=== PATIENT | female | born 1985 | race Caucasian/White ===

== ENCOUNTER 2024-07-12 10:09 | Outpatient (AMB) | payer OTHER, SELFPAY ==
[2024-07-12 10:23] VITALS: BP 122/62; PULSE 68; O2SAT 100; BMI 32.4
--- NOTE | 2024-07-12 10:23 | MHC.OFFVIS ---
Vital Signs 07/12/24 10:23 Height 5 ft 3 in Weight 183 lb 3.266 oz BMI 32.4 BP 122/62 Blood Pressure Location Lt brachial Position Sitting Pulse 68 Pulse Source Pulse Oximeter Pulse Oximetry (%) 100 Oxygen Delivery Method Room Air Intake Visit Reasons: SS/CM APT Intake Note: Patient presents today for follow up on sjorggen's cryoglobulinemic vasculitis Allergies doxycycline Allergy (Mild, Verified 07/12/24 10:29) Rash methotrexate Allergy (Mild, Verified 07/12/24 10:29) Itching minocycline Allergy (Mild, Verified 07/12/24 10:29) Vomiting rituximab Allergy (Mild, Verified 07/12/24 10:29) rash, body pain HPI HPI SS/CM APT: Details: She relapsed with low grade fevers 99.8F with chills, myalgias. She was back on prednisone 5mg BID. She saw Dr. Mike in March and April. She tried to reduce prednisone to 5 mg daily but had recurrence of symptoms. She continues to have purpuric lesions on her legs. She also has a circular lesion that concerns her for a fungal infection that started a few weeks ago on her left medial leg. She has been applying antifungal topical with some benefit. She also has an appointment to see a provider at her PCP's office for possible skin biopsy. 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 She denies pleurisy, fevers, Raynaud's phenomenon, new rashes, urinary symptoms at this time. No new joint swelling. [facility] Medical History (Updated 07/12/24 @ 12:56 by Bolivar Dugan MD) Myositis on muscle biopsy Celiac disease Polyarthritis Raynaud disease Cryoglobulinemic vasculitis H/O Sjogren's disease Surgical History (Updated 07/12/24 @ 10:39 by Salome Cruz CMA) H/O unilateral oophorectomy H/O biopsy of kidney H/O eye surgery Family History (Updated 07/12/24 @ 10:40 by Salome Cruz CMA) Mother Cardiovascular disease Thyroid disorder Father Hypertension Diabetes Brother ADHD (attention deficit hyperactivity disorder) Social History (Updated 07/12/24 @ 10:41 by Salome Cruz CMA) Alcohol intake: never Patient Tobacco Use Status: Never used Tobacco Review of Systems Const All systems reviewed & are unremarkable except as noted in HPI and below Physical Exam Vital Signs: Last Vital Signs Pulse 68 07/12/24 10:23 BP 122/62 07/12/24 10:23 Pulse Ox 100 07/12/24 10:23 Oxygen Delivery Method Room Air 07/12/24 10:23 BMI result Body Mass Index 32.4 Const Other: General: Comfortable CVS: RRR Respiratory: clear to auscultation bilaterally. Good respiratory effort Skin: No lesions seen MSK: No tenderness of any joints. No synovitis. Good range of motion of upper extremity and lower extremity. Nonpalpable purpura present on legs scattered spots. She has a circular lesion at least 10 cm diameter left medial leg near ankle. 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 Negative hepatitis-B and C). Relapse disease on azathioprine. She recently had a flare presenting with low-grade fevers, myalgias, weight loss, recurrence of rash and lower extremity. We discussed next steps in treatment with immunosuppressive therapy mycophenolate mofetil. She reports in the past she was given mycophenolate mofetil by Neurology when they were considering a diagnosis of MS. She does not recall any side effects on mycophenolate mofetil. I have reviewed labs that patient brought in from 06/22/2024. History of latent TB treated year 2001. Chest x-ray was ordered by principal biostatistician Dr. Muñoz. She does not know results of chest x-ray. 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 +SSA, SSB, MANUEL 1:1280, rheumatoid factor 27.9, low C4. She has had multiple side effects to immunosuppressive agents in the past: Hydroxychloroquine cause low white cell count (evaluated by Hematology), rituximab caused infusion reaction with rash and body pain after 1st dose, sulfasalazine caused severe GI upset 12/20/2021, azathioprine 09/22/2022-to present. She has longstanding Sjogren syndrome associated inflammatory arthritis responding to low-dose prednisone. Code(s): D89.1 - Cryoglobulinemia Category: Medical Plan: T spot ordered. Requesting chest x-ray results. I have ordered Lyme antibody due to my concern for possible Lyme infection. If results are negative, she will start mycophenolate mofetil 500 mg twice a day She will continue to take azathioprine 225 mg daily weight based She will have labs done in a month for drug monitoring with close attention paid to white blood cell count. Per patient's insurance she needs labs to be done at a [facility]. Lab requisition given to patient She will reduce prednisone dose to 7.5 mg daily Return to clinic in 3 months She will need bone density if not done recently (2) H/O Sjogren's disease: Comment: Sicca symptoms are stable. She continues to use Systane and Xiidra prescribed by Ophthalmology for dry eyes. Code(s): M35.00 - Sjogren syndrome, unspecified Category: Medical Plan: See above (3) Rash: Comment: Present on Right medial distal leg with circular bull's-eye lesion present. I am concerned for possible Lyme infection. Currently patient is treating rash as a fungal rash with antifungals. Code(s): R21 - Rash and other nonspecific skin eruption Category: Medical Plan: Labs ordered this visit. (4) Raynaud disease: Comment: Controlled Code(s): I73.00 - Raynaud's syndrome without gangrene Category: Medical Qualifiers: Raynaud?s-associated gangrene presence: without gangrene Qualified Code(s): I73.00 - Raynaud's syndrome without gangrene Plan: Continue conservative management (5) Polyarthritis: Comment: Controlled on low-dose prednisone Code(s): M13.0 - Polyarthritis, unspecified Category: Medical Plan: We will start tapering prednisone slowly. She will decrease to prednisone 7.5 mg daily (6) Other intermediate (current) drug therapy: Code(s): Z79.899 - Other intermediate (current) drug therapy Category: Medical Plan: See above Orders: Orders Erythrocyte Sedimentation Rate Today Z79.899 - Other intermediate (current) drug therapy C Reactive Protein Today Z79.899 - Other laborer marine terminal (current) drug therapy Aspartate Amino Transferase Today Z79.60 - intermediate accountant (current) use of unspecified immunomodulators and immunosuppressants Creatinine Today Z79.60 - care home (current) use of unspecified immunomodulators and immunosuppressants Erythrocyte Sedimentation Rate Today Z79.899 - Other intermediate (current) drug therapy T Spot TB Today Z79.899 - Other intermediate (current) drug therapy Alanine Aminotransferase Today Z79.60 - care home (current) use of unspecified immunomodulators and immunosuppressants Complete Blood Count Auto Diff Today Z79.60 - intermediate accountant (current) use of unspecified immunomodulators and immunosuppressants Creatinine Today Z79.60 - intermediate accountant (current) use of unspecified immunomodulators and immunosuppressants Complete Blood Count Auto Diff Today Z79.60 - care home (current) use of unspecified immunomodulators and immunosuppressants C Reactive Protein Today Z79.899 - Other laborer marine terminal (current) drug therapy Aspartate Amino Transferase Today Z79.60 - care home (current) use of unspecified immunomodulators and immunosuppressants Alanine Aminotransferase Today Z79.60 - care home (current) use of unspecified immunomodulators and immunosuppressants Lyme IgG/IgM w/reflex to WB Today R21 - Rash and other nonspecific skin eruption Medications: New mycophenolate mofetil 500 mg PO BID 60 tabs 2RF prednisone 7.5 mg (3 x 2.5 mg) PO DAILY 90 tabs 2RF Coding Level of Care Code Est Pt Level 4 (37085) Complex EM visit Add On G2211 Diagnoses Cryoglobulinemic vasculitis D89.1 H/O Sjogren's disease M35.00 Rash R21 Raynaud's disease without gangrene I73.00 Raynaud?s-associated gangrene presence: without gangrene Polyarthritis M13.0 Other laborer marine terminal (current) drug therapy Z79.
== END 2024-07-12 11:18 | disposition home or self-care (01) ==
PROVIDERS: PCP Family Medicine; Visit Provider Internal Medicine Rheumatology
DX: D89.1 Cryoglobulinemia (principal); M35.00 Sjogren syndrome, unspecified; R21 Rash and other nonspecific skin eruption; I73.00 Raynaud's syndrome without gangrene; M13.0 Polyarthritis, unspecified; Z79.899 Other long term (current) drug therapy
CPT/HCPCS: 99214

== ENCOUNTER → 2024-07-12 10:09 | Outpatient (BNVA) | payer OTHER, SELFPAY | PROVIDERS: PCP Family Medicine; Visit Provider Internal Medicine Rheumatology ==

== ENCOUNTER 2024-10-12 10:11 | Outpatient (AMB) | payer OTHER, SELFPAY ==
--- NOTE | 2024-10-12 10:25 | A.OFFVIS_ITS ---
Vital Signs 10/12/24 10:28 Height 5 ft 3 in Weight 182 lb 1.629 oz BMI 32.3 BP 130/100 H Pulse 73 Pulse Source Pulse Oximeter Pulse Oximetry (%) 100 Oxygen Delivery Method Room Air Intake Visit Reasons: Follow Up 3mo Intake Note: Patient presents today for follow up on sjorggen's cryoglobulinemic vasculitis Allergies doxycycline Allergy (Mild, Verified 07/12/24 10:29) Rash methotrexate Allergy (Mild, Verified 07/12/24 10:29) Itching minocycline Allergy (Mild, Verified 07/12/24 10:29) Vomiting rituximab Allergy (Mild, Verified 07/12/24 10:29) rash, body pain HPI HPI Follow Up 3mo: Details: Dry eyes uncontrolled for a month. Relieved with warm compresses. She sees [facility] in [place] textile colorist formulator Mariana Dempsey. She has been on Xiidra. She was told to use additional OTC eyedrops. Symptoms are better controlled. She will be following up with textile colorist formulator in December. New small spots in legs occur daily. Starts as a sting sensation. She continues to have fatigue Dry mouth is tolerable on biotene toothpaste and losenges Right foot dragged a few times when walking. Standing for more than 5 minutes her feet get numbs. Doesn't occur when sitting. She is tolerating Myfortic PFSH Medical History (Updated 10/12/24 @ 14:53 by Bolivar Dugan MD) Myositis on muscle biopsy Celiac disease Polyarthritis Raynaud disease Cryoglobulinemic vasculitis H/O Sjogren's disease Surgical History (Updated 07/12/24 @ 10:39 by Salome Cruz CMA) H/O unilateral oophorectomy H/O biopsy of kidney H/O eye surgery Family History (Updated 07/12/24 @ 10:40 by Salome Cruz CMA) Mother Cardiovascular disease Thyroid disorder Father Hypertension Diabetes Brother ADHD (attention deficit hyperactivity disorder) Social History (Updated 07/12/24 @ 10:41 by Salome Cruz CMA) Alcohol intake: never Patient Tobacco Use Status: Never used Tobacco Review of Systems Const All systems reviewed & are unremarkable except as noted in HPI and below and Other Physical Exam Vital Signs: Last Vital Signs Pulse 73 10/12/24 10:28 BP 130/100 H 10/12/24 10:28 Pulse Ox 100 10/12/24 10:28 Oxygen Delivery Method Room Air 10/12/24 10:28 BMI result Body Mass Index 32.3 Const Other: General: Comfortable CVS: RRR Respiratory: clear to auscultation bilaterally. Good respiratory effort Skin: Sparse palpable, nonblanching petechiae present on legs MSK: No tenderness of any joints. No synovitis. Normal range of motion of upper extremity and lower extremity. Assessment & Plan Assessment & Plan (1) Cryoglobulinemic vasculitis: Comment: Disease is not controlled on prednisone 7.5 mg daily, azathioprine 225 mg daily and recently started Myfortic 180 mg twice a day. She continues to have daily lesions on her legs, self-limited. 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 +SSA, SSB, MANUEL 1:1280, rheumatoid factor 27.9, low C4. She has had multiple side effects to immunosuppressive agents in the past: Hydroxychloroquine cause low white cell count (evaluated by Hematology), rituximab caused infusion reaction with rash and body pain after 1st dose, sulfasalazine caused severe GI upset 12/20/2021, azathioprine 09/22/2022-to present. She has longstanding Sjogren syndrome associated inflammatory arthritis responding to low-dose prednisone. She has been diagnosed with cryoglobulinemic vasculitis (mixed type 3 cryoglobulinemia. Negative hepatitis- B and C) onset 2022 relapsed on azathioprine and low-dose prednisone. Dr Aguirre at [facility] in the past prescribed her mycophenolate mofetil, which was up titrated to 1250mg BID and after 5 weeks it was stopped because of itchiness in limbs and anxiety. Myfortic 08/2024-. Code(s): D89.1 - Cryoglobulinemia Category: Medical Plan: Increase Myfortic to 360 twice a day She will call office in 1-2 months to report clinical update. If her symptoms are improving, I will consider decreasing prednisone to 5 mg daily She will continue to take azathioprine 225 mg daily weight based Labs for drug monitoring on high-risk medications up-to-date 09/2024. She will have labs done in a month for drug monitoring with close attention paid to white blood cell count. Per patient's insurance she needs labs to be done at a [facility] facility. Lab requisition given to patient. Requesting hepatitis-B and C serologies from [facility] from 2022 for my record at [facility] [place]. Continue prednisone 7.5 mg daily Return to clinic in 3 months Letter written for patient's workplace She will need bone density if not done recently. I will be checking calcium, albumin, and vitamin-D with next lab check (2) H/O Sjogren's disease: Comment: Sicca symptoms are stable. She continues to use Systane and Xiidra prescribed by textile colorist formulator for dry eyes. Code(s): M35.00 - Sjogren syndrome, unspecified Category: Medical Plan: Continue to follow up with textile colorist formulator Kal in [place] for dry eye management Continue Biotene products for dry mouth management: Lozenges and tooth paste (3) Raynaud disease: Comment: Controlled Code(s): I73.00 - Raynaud's syndrome without gangrene Category: Medical Qualifiers: Raynaud?s-associated gangrene presence: without gangrene Qualified Code(s): I73.00 - Raynaud's syndrome without gangrene Plan: Continue conservative management (4) Polyarthritis: Comment: Associated with Sjogren syndrome. Controlled on low-dose prednisone Code(s): M13.0 - Polyarthritis, unspecified Category: Medical Plan: Continue prednisone 7.5 mg daily (5) Other prison (current) drug therapy: Code(s): Z79.899 - Other watermaster (current) drug therapy Category: Medical Plan: See above Orders: Orders Alanine Aminotransferase 1 Month Z79.60 - senior care (current) use of unspecified immunomodulators and immunosuppressants Complete Blood Count Auto Diff 1 Month Z79.60 - senior care (current) use of unspecified immunomodulators and immunosuppressants Aspartate Amino Transferase 1 Month Z79.60 - petroleum terminal plant operator (current) use of unspecified immunomodulators and immunosuppressants C Reactive Protein 1 Month Z79.899 - Other watermaster (current) drug therapy Albumin Level Today Z79.899 - Other watermaster (current) drug therapy Creatinine 1 Month Z79.60 - senior care (current) use of unspecified immunomodulators and immunosuppressants Erythrocyte Sedimentation Rate 1 Month Z79.899 - Other watermaster (current) drug therapy Vitamin D 25-OH Total Today Z79.899 - Other watermaster (current) drug therapy Calcium Today Z79.899 - Other prison (current) drug therapy Medications: Changed From mycophenolate sodium (Myfortic) 180 mg PO BID 60 tabs 2RF To mycophenolate sodium (Myfortic) 360 mg (2 x 180 mg) PO BID 90 days 360 tabs 0RF From prednisone 7.5 mg (3 x 2.5 mg) PO DAILY 90 tabs 2RF To prednisone 7.5 mg (3 x 2.5 mg) PO DAILY 90 days 270 tabs 0RF Coding Level of Care Code Est Pt Level 5 (25632) Complex EM visit Add On G2211 Diagnoses Cryoglobulinemic vasculitis D89.1 H/O Sjogren's disease M35.00 Raynaud's disease without gangrene I73.00 Raynaud?s-associated gangrene presence: without gangrene Polyarthritis M13.0 Other watermaster (current) drug therapy Z79.89 Time Spent (min) 40
[2024-10-12 10:28] VITALS: BP 130/100; PULSE 73; O2SAT 100; BMI 32.3
== END 2024-10-12 11:02 | disposition home or self-care (01) ==
LOC: HO.RHES 10:12
PROVIDERS: PCP Family Medicine; Visit Provider Internal Medicine Rheumatology
DX: D89.1 Cryoglobulinemia (principal); M35.00 Sjogren syndrome, unspecified; I73.00 Raynaud's syndrome without gangrene; M13.0 Polyarthritis, unspecified; Z79.899 Other long term (current) drug therapy
CPT/HCPCS: 99215

== ENCOUNTER 2025-01-17 10:25 | Outpatient (AMB) | payer OTHER, SELFPAY ==
--- NOTE | 2025-01-17 10:44 | A.OFFVIS_ITS ---
Vital Signs 01/17/25 10:47 Height 5 ft 3 in Weight 176 lb 6 oz BMI 31.2 BP 150/100 H Blood Pressure Location Lt brachial Position Sitting Pulse 79 Pulse Source Pulse Oximeter Temp 100 F Pulse Oximetry (%) 100 Oxygen Delivery Method Room Air Intake Visit Reasons: 3 Months Intake Note: Patient presents today for follow up on sjorggen's cryoglobulinemic vasculitis Accompanied by: Self / Same As Patient Allergies doxycycline Allergy (Mild, Verified 01/17/25 10:45) Rash methotrexate Allergy (Mild, Verified 01/17/25 10:45) Itching minocycline Allergy (Mild, Verified 01/17/25 10:45) Vomiting rituximab Allergy (Mild, Verified 01/17/25 10:45) rash, body pain Medication List - Last Reconciled 01/17/25 by Bolivar Dugan MD azathioprine 200 mg (2 x 100 mg) PO DAILY 90 days azathioprine 25 mg (1/2 x 50 mg) PO DAILY 90 days lifitegrast 5% (Xiidra) 1 drp ophthalmic (eye) BID lorazepam 1 mg PO DAILY PRN magnesium oxide 400 mg PO DAILY multivitamin 1 tab PO DAILY mycophenolate sodium (Myfortic) 360 mg (2 x 180 mg) PO BID 90 days omeprazole 40 mg PO DAILY ondansetron HCl 4 mg PO Q8H prednisone 5 mg PO DAILY HPI HPI 3 Months: Details: SHe was on antibiotic for sinus infection. MS 1 hour. Feels good. Intermittent lesions in legs that self resolve. PFSH Medical History (Updated 01/17/25 @ 12:54 by Bolivar Dugan MD) Myositis on muscle biopsy Celiac disease Polyarthritis Raynaud disease Cryoglobulinemic vasculitis H/O Sjogren's disease Surgical History (Updated 07/12/24 @ 10:39 by Salome Cruz CMA) H/O unilateral oophorectomy H/O biopsy of kidney H/O eye surgery Family History (Updated 07/12/24 @ 10:40 by Salome Cruz CMA) Mother Cardiovascular disease Thyroid disorder Father Hypertension Diabetes Brother ADHD (attention deficit hyperactivity disorder) Social History (Updated 07/12/24 @ 10:41 by Salome Cruz CMA) Alcohol intake: never Patient Tobacco Use Status: Never used Tobacco Physical Exam Vital Signs: Last Vital Signs Temp 100 F 01/17/25 10:47 Pulse 79 01/17/25 10:47 BP 150/100 H 01/17/25 10:47 Pulse Ox 100 01/17/25 10:47 Oxygen Delivery Method Room Air 01/17/25 10:47 BMI result Body Mass Index 31.2 Const Other: General: Comfortable CVS: RRR Respiratory: clear to auscultation bilaterally. Good respiratory effort Skin: Sparse palpable, nonblanching petechiae present right thigh MSK: No tenderness of any joints. No synovitis. Normal range of motion of upper extremity and lower extremity. Assessment & Plan Assessment & Plan (1) Cryoglobulinemic vasculitis: Comment: Disease is controlled on prednisone 2.5 mg daily, azathioprine 225 mg daily and Myfortic 360 mg twice a day. There is reduction in frequency and amount of lesions that are sporadically appearing and resolving on her legs. 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 +SSA, SSB, MANUEL 1:1280, rheumatoid factor 27.9, low C4. She has had multiple side effects to immunosuppressive agents in the past: Hydroxychloroquine cause low white cell count (evaluated by Hematology), rituximab caused infusion reaction with rash and body pain after 1st dose, sulfasalazine caused severe GI upset 12/20/2021, azathioprine 09/22/2022-to present. She has longstanding Sjogren syndrome associated inflammatory arthritis responding to low-dose prednisone. 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 Negative hepatitis-B and C) onset 2022 relapsed on azathioprine and low-dose prednisone. Dr Aguirre at [facility] in the past prescribed her mycophenolate mofetil, which was up titrated to 1250mg BID and after 5 weeks it was stopped because of itchiness in limbs and anxiety. Myfortic 08/2024-. Code(s): D89.1 - Cryoglobulinemia Category: Medical Plan: Continue Myfortic to 360 twice a day Decrease prednisone to 2.5 mg daily for 1 month then discontinue She will continue to take azathioprine 225 mg daily weight based Labs for drug monitoring on high-risk medications up-to-date 11/2024. She will camops ve labs done prior to running out of Myfortic in 2-3 weeks for drug monitoring Return to clinic in 3 months FMLA completed for patient She will need bone density if not done recently. Ordered last visit. I will be checking calcium, albumin, and vitamin-D with next lab check (2) H/O Sjogren's disease: Comment: Sicca symptoms are stable. She continues to use Systane and Xiidra prescribed by meat team lead for dry eyes. Code(s): M35.00 - Sjogren syndrome, unspecified Category: Medical Plan: Continue to follow up with meat team lead Dr. Valle and is planning to have laser treatment this Thursday Continue Biotene products for dry mouth management: Lozenges and tooth paste (3) Raynaud disease: Comment: Controlled Code(s): I73.00 - Raynaud's syndrome without gangrene Category: Medical Qualifiers: Raynaud?s-associated gangrene presence: without gangrene Qualified Code(s): I73.00 - Raynaud's syndrome without gangrene Plan: Continue conservative management (4) Polyarthritis: Comment: Associated with Sjogren syndrome. Controlled on low-dose prednisone. Code(s): M13.0 - Polyarthritis, unspecified Category: Medical Plan: Decrease prednisone to 2.5 mg daily for 1 month and discontinue (5) Other superintendent marine oil terminal (current) drug therapy: Code(s): Z79.899 - Other custodial (current) drug therapy Category: Medical Plan: See above (6) custodial systemic steroid user: Code(s): Z79.52 - custodial (current) use of systemic steroids Category: Medical Plan: Bone density ordered Calcium, albumin, vitamin-D ordered Return to clinic in 3 months Orders: Orders Albumin Level Today D89.1 - Cryoglobulinemia, M13.0 - Polyarthritis, unspecified, Z79.52 - custodial (current) use of systemic steroids, Z79.899 - Other custodial (current) drug therapy Calcium Today D89.1 - Cryoglobulinemia, M13.0 - Polyarthritis, unspecified, Z79.52 - marine oil terminal superintendent (current) use of systemic steroids, Z79.899 - Other custodial (current) drug therapy Medications: Changed From prednisone 5 mg PO DAILY To prednisone 2.5 mg PO DAILY 90 days 90 tabs 0RF Coding Level of Care Code Est Pt Level 4 (31404) Complex EM visit Add On G2211 Diagnoses Cryoglobulinemic vasculitis D89.1 H/O Sjogren's disease M35.00 Raynaud's disease without gangrene I73.00 Raynaud?s-associated gangrene presence: without gangrene Polyarthritis M13.0 Other superintendent marine oil terminal (current) drug therapy Z79.899 marine oil terminal superintendent systemic steroid user Z79.52
[2025-01-17 10:47] VITALS: BP 150/100; PULSE 79; TEMP 37.7; O2SAT 100; BMI 31.2
== END 2025-01-17 11:19 | disposition home or self-care (01) ==
LOC: HO.RHES 10:25
PROVIDERS: PCP Family Medicine; Visit Provider Internal Medicine Rheumatology
DX: D89.1 Cryoglobulinemia (principal); M35.00 Sjogren syndrome, unspecified; I73.00 Raynaud's syndrome without gangrene; M13.0 Polyarthritis, unspecified; Z79.899 Other long term (current) drug therapy; Z79.52 Long term (current) use of systemic steroids
CPT/HCPCS: 99214; G2211

== ENCOUNTER 2025-04-25 10:29 | Outpatient (AMB) | payer OTHER, SELFPAY ==
--- NOTE | 2025-04-25 10:34 | MHC.OFFVIS ---
Vital Signs 04/25/25 10:35 Height 5 ft 3 in Weight 178 lb BMI 31.5 BP 140/80 H Blood Pressure Location Lt brachial Position Sitting Pulse 86 Pulse Source Pulse Oximeter Pulse Oximetry (%) 100 Oxygen Delivery Method Room Air Intake Visit Reasons: 3 Months Intake Note: Patient presents today for follow up on sjorggen's Accompanied by: Self / Same As Patient Allergies doxycycline Allergy (Mild, Verified 04/25/25 10:36) Rash methotrexate Allergy (Mild, Verified 04/25/25 10:36) Itching minocycline Allergy (Mild, Verified 04/25/25 10:36) Vomiting rituximab Allergy (Mild, Verified 04/25/25 10:36) rash, body pain HPI HPI 3 Months: Details: On prednisone 20mg daily. She feels unwell. She has fatigue that resolves at lunch time. Muscle pain is variable areas. Some joints may hurt. MS hours. No joint swelling. Denies fevers. LCV lesions come and go. She has a few spots on her legs. Recent rash that appeared on her arms were resolving when she started prednisone. They occurred when she stopped Myfortic and azathioprine when she was being treated with an antibiotic for infection. Skin Biopsy confirmed changes consistent with connective tissue disease rash. She lowered Myfortic to 160 mg b.i.d due to recent leukopenia. she continues to take azathioprine. Dry mouth is manageable. She had laser treatment x3 performed by laminating machine offbearer Dr. Valle that was effective in controlling dry eyes. 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 Celiac disease Polyarthritis Raynaud disease Cryoglobulinemic vasculitis H/O Sjogren's disease Surgical History H/O unilateral oophorectomy H/O biopsy of kidney H/O eye surgery Family History Mother Cardiovascular disease Thyroid disorder Father Hypertension Diabetes Brother ADHD (attention deficit hyperactivity disorder) Social History Alcohol intake: never Patient Tobacco Use Status: Never used Tobacco Physical Exam Vital Signs: Last Vital Signs Pulse 86 04/25/25 10:35 BP 140/80 H 04/25/25 10:35 Pulse Ox 100 04/25/25 10:35 Oxygen Delivery Method Room Air 04/25/25 10:35 BMI result Body Mass Index 31.5 Const Other: General: Comfortable CVS: RRR Respiratory: clear to auscultation bilaterally. Good respiratory effort Skin: One palpable, nonblanching petechiae present left thigh. Two hyperpigmented circular skin lesions right upper arm (punch biopsy sites). MSK: No tenderness of any joints. No synovitis. Normal range of motion of upper extremity and lower extremity. 5/5 power upper extremity. Left hip flexors 4/5 power. Rest of lower extremity is 5/5 power. Assessment & Plan Assessment & Plan (1) Sjogrens syndrome: Comment: Dry eyes are controlled after laser treatment by laminating machine offbearer Dr. Valle. Dry mouth is controlled. Labs from March 2025 reveal hypocomplementemia (C3 and C4), acute on chronic leukopenia, worsening macrocytic anemia, persistent elevated ESR in the setting of of flare with clinical symptoms of increased fatigue, hair loss, joint pain when she was off of her immune suppressive therapy during treatment of an infection. She also developed new rash manifesting with circular lesions on her upper extremities right arm worse than left that concerned me for acute cutaneous lupus after reviewing photos on her phone. She meets SLICC criteria for SLE with her most recent flare. Negative Sm, DsDNA, CLEANING TEAM MEMBER, proteinuria with normal kidney function. Symptoms have subsided on prednisone 20 mg daily. Leukopenia could also be attributed to drug side effect more when Myfortic was increased. Code(s): M35.00 - Sjogren syndrome, unspecified Category: Medical Qualifiers: Sjogren organ or system involvement: keratoconjunctivitis Qualified Code(s): M35.01 - Sjogren syndrome with keratoconjunctivitis Plan: CBC, ESR, CRP, C3, C4, vitamin B12, folate level ordered for patient to do at her local lab per insurance requirement She will start tapering prednisone 5 mg every 2 weeks If she has difficulty tapering down on prednisone, I will need to consider B-cell targeted treatment with Benlysta for treatment of SLE Continue Myfortic 180 mg b.i.d. Continue azathioprine 200 mg daily Continue to follow up with construction trench digger Dr. Valle and is planning to have laser treatment this Thursday Continue Biotene products for dry mouth management: Lozenges and tooth paste (2) Cryoglobulinemic vasculitis: Comment: Disease is controlled. 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 +SSA, SSB, MANUEL 1:1280, rheumatoid factor 27.9, low C4. She has had multiple side effects to immunosuppressive agents in the past: Hydroxychloroquine cause low white cell count (evaluated by Hematology), rituximab caused infusion reaction with rash and body pain after 1st dose, sulfasalazine caused severe GI upset 12/20/2021, azathioprine 09/22/2022-to present. She has longstanding Sjogren syndrome associated inflammatory arthritis responding to low-dose prednisone. 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 Dr Aguirre at [facility] in the past prescribed her mycophenolate mofetil, which was up titrated to 1250mg BID and after 5 weeks it was stopped because of itchiness in limbs and anxiety. Myfortic 08/2024-. Code(s): D89.1 - Cryoglobulinemia Category: Medical Plan: Continue Myfortic 180mg twice a day Decrease prednisone 5 mg every 2 weeks Continue to take azathioprine 200 mg daily weight based Labs ordered for disease and drug monitoring as above Return to clinic in 3 months She will need bone density if not done recently. (3) Polyarthritis: Comment: Associated with Sjogren syndrome. Controlled on prednisone Code(s): M13.0 - Polyarthritis, unspecified Category: Medical Plan: Decrease prednisone 5 mg every 2 weeks (4) Raynaud disease: Comment: Controlled Code(s): I73.00 - Raynaud's syndrome without gangrene Category: Medical Qualifiers: Raynaud?s-associated gangrene presence: without gangrene Qualified Code(s): I73.00 - Raynaud's syndrome without gangrene Plan: Continue conservative management (5) Other residential (current) drug therapy: Code(s): Z79.899 - Other residential (current) drug therapy Category: Medical Plan: See above (6) metal bonder systemic steroid user: Comment: She has proximal left leg weakness on exam 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 Code(s): Z79.52 - metal bonder (current) use of systemic steroids Category: Medical Plan: Bone density ordered 01/2025 Prednisone tapering initiated Return to clinic in 3 months (7) Macrocytic anemia: Code(s): D53.9 - Nutritional anemia, unspecified Category: Medical Plan: Folic and vitamin B12 ordered Orders: Orders C Reactive Protein Today D89.1 - Cryoglobulinemia, M13.0 - Polyarthritis, unspecified, M35.00 - Sjogren syndrome, unspecified, R21 - Rash and other nonspecific skin eruption Erythrocyte Sedimentation Rate Today D89.1 - Cryoglobulinemia, M13.0 - Polyarthritis, unspecified, M35.00 - Sjogren syndrome, unspecified, R21 - Rash and other nonspecific skin eruption UA w Microscopic Today D89.1 - Cryoglobulinemia, R21 - Rash and other nonspecific skin eruption Complement C4 Today M35.01 - Sjogren syndrome with keratoconjunctivitis Folate Today D53.9 - Nutritional anemia, unspecified Complete Blood Count Auto Diff Today D89.1 - Cryoglobulinemia, M13.0 - Polyarthritis, unspecified, M35.00 - Sjogren syndrome, unspecified, R21 - Rash and other nonspecific skin eruption Protein Creatinine Ratio, Ur Today D89.1 - Cryoglobulinemia, M13.0 - Polyarthritis, unspecified, R21 - Rash and other nonspecific skin eruption Complement C3 Today M35.01 - Sjogren syndrome with keratoconjunctivitis Vitamin B12 Today D53.9 - Nutritional anemia, unspecified Medications: New prednisone Take 3 tablets daily 2 weeks, 2 tablets daily 2 weeks, 1 tablet daily 2 weeks then stop 5 mg PO DIRECTED 84 tabs 0RF Coding Level of Care Code Est Pt Level 4 (95956) Complex EM visit Add On G2211 Diagnoses Sjogren's syndrome with keratoconjunctivitis sicca M35.01 Sjogren organ or system involvement: keratoconjunctivitis Cryoglobulinemic vasculitis D89.1 Polyarthritis M13.0 Raynaud's disease without gangrene I73.00 Raynaud?s-associated gangrene presence: without gangrene Other associate juvenile court judge (current) drug therapy Z79.899 penitentiary systemic steroid user Z79.52 Macrocytic anemia D53.9
[2025-04-25 10:35] VITALS: BP 140/80; PULSE 86; O2SAT 100; BMI 31.5
--- OUTSIDE RECORDS SUMMARY | 2025-04-25 12:48 | XMS_ITS | Encounter Summary ---
Author Organization [facility] Address [address] [facility] [address] [place] [address] Phone Care Team Providers Care Glass Cut Off Supervisor Name Role Phone Brenton Morales MD Unavailable [phone] Valeri Goodwin MD Unavailable [phone] Zan Brown ENTRY LEVEL ASSISTANT MANAGER Unavailable [phone] Sharona Velasco ONLINE ACTIVIST Unavailable [phone] Jd Murray MD Unavailable [phone] Bharath Lyon MD Unavailable Corine Neil MD Unavailable Pcp, Unknown Primary Care Provider UnavailValeri Jenkins MD Primary Care Provider [phone] Pcp, Unknown Primary Care Provider UnavailKerwin Stanley DO Primary Care Provider [phone] Encounter Details Date Type Department Care Team (Late st Contact Info) Description 07/21/2017 Transcribe Orders [facility] Specimen Processing [address] [place] [address] Luna López MD [address] [place], [place] [id number] Cutaneous abscess of face (Primary Dx) Social History Tobacco Use Types Packs/Day Years Used Date Smoking Tobacco: Never Assessed Comments Unknown Sex and Gender Information Value Date Recorded Sex Assigned at Female 09/12/2019 10:03 AM EST Legal Sex Female 5:26 PM EST Gender Identity Female 09/12/2019 10:03 AM EST Sexual Orientation Straight 09/12/2019 10 :03 AM EST documented as of this encounter Plan of Treatment Not on file documented as of this encounter Results * Wound culture/smear (07/21/2017 1:31 PM EST) Specimen Source/ Description SKIN SUBMENTAL CHIN SKIN [facility] Special Requests None [facility] GRAM STAIN NO ORGANISMS SEEN , Few WBC'S [facility] Culture/Test NO GROWTH 48HRS [facility] Report Status 07/23/2017 FINAL [facility] Other (Skin) 07/21/2017 1:31 PM EST 07/21/2017 4:19 PM EST us Luna López MD MICROBIOLOGY - GENERAL ALEJANDRA AMAYA Final Result Performing Organization Address City/State/[facility] Co de Phone Number [facility] [address] [place] [address] documented in this encounter Visit Diagnoses Diagnosis Cutaneous abscess of face- Primary documented in this encounter Care Teams Glass Cut Off Supervisor Relationship Specialty Start Date End Date Pcp, Unknown PCP - General 07/21/17 08/05/17 Valeri Goodwin MD [address] [place] [address], [address] [place] [address] PCP - General 08/06/17 03/04/22 Pcp, Unknown PCP - General 03/05/22 03/05/22 Kerwin Marks DO [address] [address] PCP - General Family Medicine 09/13/24 Brenton Morales MD [address] [place] [address], [address] [place] [address] Historical LMR Provider 05/24/17 08/10/21 Valeri Goodwin MD [address] [place] [address], [address] [place] [address] Historical LMR Provider 05/24/17 2 Zan Brown, ENTRY LEVEL ASSISTANT MANAGER [address] [place] [address], [address] [place] [address] Historical LMR Provider 05/24/17 08/10/21 Sharona Velasco NP [address] [place] [address] Historical LMR Provider 05/24/17 2 Jd Murray MD [address] [place] [address], [address] [place] [address] [email or web address] Historical LMR Provider 05/24/17 2 Bharath Lyon MD [address] [place] [phone] Historical LMR Provider 05/24/17 2 Corine Neil MD [address] [place] [address] [email or web address] Historical LMR Provider 05/24/17 08/10/21 documented as of this encounter Additional Source Comments The information contained in this document represents components of the legal health record. It is not the complete legal health record.[facility]
--- OUTSIDE RECORDS SUMMARY | 2025-04-25 12:48 | XMS_ITS | Encounter Summary ---
Author Organization [facility] Address [address] [facility] [address] [place] [address] Phone Care Team Providers Care Elevator Dispatcher Name Role Phone Brenton Morales MD Unavailable [phone] Valeri Goodwin MD Unavailable [phone] Zan Brown RECRUITING MANAGER Unavailable [phone] Sharona Velasco UPTWISTER TENDER Unavailable [phone] Jd Murray MD Unavailable Bharath Lyon MD Unavailable Corine Neil MD Unavailable [phone] Valeri Goodwin MD Primary Care Provider [phone] Pcp, Unknown Primary Care Provider Unavailhailee e Kerwin Marks DO Primary Care Provider Encounter Details Date Type Department Care Team (Late st Contact Info) Description 02/10/2018 Ancillary Orders [facility],Outside Imaging [address] [place], [place] [phone] System, Provider Not In, PhD Partners [address] [address] Social History Tobacco Use Types Packs/Day Years Used Date Smoking Tobacco: Never Smokeless Tobacco: Never Alcohol Use Standard Drinks/Week Comments No 0 (1 standard drink = 0.6 oz pur e alcohol) Comments Unknown Sex and Gender Information Value Date Recorded Sex Assigned at Female 09/12/2019 10:03 AM EST Legal Sex Female 5:26 PM EST Gender Identity Female 09/12/2019 10:03 AM EST Sexual Orientation Straight 09/12/2019 10 :03 AM EST 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 us Provider Not In System PhD IMG OUTSIDE IMAGING W /OUT INTERPRETATION Final Result documented in this encounter Visit Diagnoses Not on filedocumented in this encounter Care Teams Elevator Dispatcher Relationship Specialty Start Date End Date Valeri Goodwin MD [address] [place] [address], [address] [place] [address] PCP - General 08/06/17 03/04/22 Pcp, Unknown PCP - General 03/05/22 03/05/22 Kerwin Marks DO [address] [facility] [address] [place] [address] PCP - General Family Medicine 09/13/24 Brenton Morales MD [address] [place] [address], [address] [place] [address] Historical LMR Provider 05/24/17 08/10/21 Valeri Goodwin MD [address] [place] [address], [address] [place] [address] Historical LMR Provider 05/24/17 2 Zan Brown CNP [address] [facility] [place] [address] [email or web address] Historical LMR Provider 05/24/17 08/10/21 Sharona Velasco UPTWISTER TENDER [address] [place] [address] Historical LMR Provider 05/24/17 2 Jd Murray MD [address] [facility] [place] [address] [email or web address] Historical LMR Provider 05/24/17 2 Bharath Lyon MD [address] [place] [phone] Historical LMR Provider 05/24/17 2 Corine Neil MD [address] [place] [address] [email or web address] Historical LMR Provider 05/24/17 08/10/21 documented as of this encounter Additional Source Comments The information contained in this document represents components of the legal health record. It is not the complete legal health record.[facility]
--- OUTSIDE RECORDS SUMMARY | 2025-04-25 12:48 | XMS_ITS | Encounter Summary ---
Author Organization [facility] Address [address] [place] [address] [place] [address] Phone Care Team Providers Care Asset Liability Analyst Name Role Phone Brenton Morales MD Unavailable [phone] Valeri Goodwin MD Unavailable [phone] Zan Brown EQUIP MAINT ENG Unavailable [phone] Sharona Velasco TUBERCULOSIS SPECIALIST Unavailable [phone] Jd Murray MD Unavailable [phone] Bharath Lyon MD Unavailable Corine Neil MD Unavailable Valeri Goodwin MD Primary Care Provider [phone] Pcp, Unknown Primary Care Provider UnavailKerwin Stanley DO Primary Care Provider Reason for Referral * Consultation (Elective) - Closed Specialty Diagnoses / Procedures Referred By Contac t Referred To Contact Neurology Diagnoses Encounter for consultation Norma Finnegan MD Phone: tel: fax: [address] [address] Phone: tel: Referral ID Status Reason Start Date Expiration Date Visits Re quested Visits Authorized [id number] Closed 02/14/2019 02/15/2020 1 1 Encounter Details Date Type Department Care Team (Latest Contact Info) Description 02/14/[address] 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 Neurology Outpatient Referral Routine Encounter for consultation Ordered: 02/14/2019 documented as of this encounter Visit Diagnoses Diagnosis Encounter for consultation- Primary documented in this encounter Care Teams Asset Liability Analyst Relationship Specialty Start Date End Date Valeri Goodwin MD [address] [place] [address], [address] [place] [address] [email or web address] PCP - General 08/06/17 03/04/22 Pcp, Unknown PCP - General 03/05/22 03/05/22 Kerwin Marks DO [address] [facility] [address] [place] [address] PCP - General Family Medicine 09/13/24 Brenton Morales MD [address] [place] [address], [address] [place] [address] Historical LMR Provider 05/24/17 08/10/21 Valeri Goodwin MD [address] [place] [address], [address] [place] [address] Historical LMR Provider 05/24/17 2 Zan Brown, EQUIP MAINT ENG [address] [place] [address], [address] [place] [address] Historical LMR Provider 05/24/17 08/10/21 Sharona Velasco, TUBERCULOSIS SPECIALIST [address] [place] [address] Historical LMR Provider 05/24/17 2 Jd Murray MD [address] [place] [address], [address] [place] [address] [email or web address] Historical LMR Provider 05/24/17 2 Bharath Lyon MD [address] [place] [phone] Historical LMR Provider 05/24/17 2 Corine Neil MD [address] [place] [address] [email or web address] Historical LMR Provider 05/24/17 08/10/21 documented as of this encounter Additional Source Comments The information contained in this document represents components of the legal health record. It is not the complete legal health record.[facility]
--- OUTSIDE RECORDS SUMMARY | 2025-04-25 12:48 | XMS_ITS | Encounter Summary ---
Author Organization [facility] Address [address] [facility] [address] [place] [address] Phone Care Team Providers Care Pack Worker Name Role Phone Brenton Morales MD Unavailable [phone] Valeri Goodwin MD Unavailable [phone] Zan Brown WELDER SETTER RESISTANCE MACHINE Unavailable [phone] Sharona Velasco BINDERY MACHINE SETTER Unavailable [phone] Jd Murray MD Unavailable [phone] Bharath Lyon MD Unavailable Corine Neil MD Unavailable Valeri Goodwin MD Primary Care Provider [phone] Pcp, Unknown Primary Care Provider Unavailabl e Kerwin Marks DO Primary Care Provider [phone] Encounter Details Date Type Department Care Team (Late st Contact Info) Description 03/01/2019 Procedure Pass [facility] Imaging [address] [place] [address] Social History Tobacco Use Types Packs/Day Years [...] 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 Not on file Not on f ile documented as of this encounter Plan of Treatment Not on file documented as of this encounter Visit Diagnoses Not on filedocumented in this encounter Care Teams Pack Worker Relationship Specialty Start Date End Date Valeri Goodwin MD [address] [place] [address], [address] [place] [address] PCP - General 08/06/17 03/04/22 Pcp, Unknown PCP - General 03/05/22 03/05/22 Kerwin Marks DO [address] [address] PCP - General Family Medicine 09/13/24 Brenton Morales MD [address] [place] [address], [address] [place] [address] Historical LMR Provider 05/24/17 08/10/21 Valeri Goodwin MD [address] [place] [address], [address] [place] [address] Historical LMR Provider 05/24/17 2 Zan Brown CNP [address] [place] [address], [address] [place] [address] Historical LMR Provider 05/24/17 08/10/21 Sharona Velasco, BINDERY MACHINE SETTER [address] [place] [address] Historical LMR Provider 05/24/17 2 Jd Murray MD [address] [facility] [place] [address] [email or web address] Historical LMR Provider 05/24/17 2 Bharath Lyon MD [address] [place] [phone] Historical LMR Provider 05/24/17 2 Corine Neil MD [address] [facility] [address] [place] [address] [email or web address] Historical LMR Provider 05/24/17 08/10/21 documented as of this encounter Additional Source Comments The information contained in this document represents components of the legal health record. It is not the complete legal health record.[facility]
--- OUTSIDE RECORDS SUMMARY | 2025-04-25 12:48 | XMS_ITS | Encounter Summary ---
Author Organization [facility] Address [address] [place] [address] Phone Care Team Providers Care Cardiology Teacher Name Role Phone KendrickKerwin DO Primary Care Provider Encounter Details Date Type Department Care Team (Late st Contact Info) Description 11/24/2024 Transcribe Orders [facility] [address] [place] [address] Vilma Richardson MD [address] [address] [email or web address] Social History Tobacco Use Types Packs/Day Years Used Date Smoking Tobacco: Never Smokeless Tobacco: Never Alcohol Use Standard Drinks/Week Comments No 0 (1 standard drink = 0.6 oz pur e alcohol) Education Answer Date Recorded Are you interested in more education? Not on anirudh e 12/14/2022 Are you concerned about learning? Not on file 12/14/2022 No 12/14/2022 No 12/14/2022 Digital Access Answer Date Recorded No 12/27/2022 No 12/27/2022 Reliable internet access at home? Not on file 12/27/2022 Device with a working camera? 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 It is not the complete legal health record.[facility]
--- OUTSIDE RECORDS SUMMARY | 2025-04-25 12:48 | XMS_ITS | Encounter Summary ---
Author Organization [facility] Address [address] [facility] [address] [place] [address] Phone Care Team Providers Care Inspector Elevators Name Role Phone Brenton Morales MD Unavailable +[phone] Valeri Goodwin MD Unavailable +[phone] Zan Brown SENIOR ORACLE APPLICATIONS DEVELOPER Unavailable [phone] Sharona Velasco CLIPMAN Unavailable [phone] Jd Murray MD Unavailable [phone] Bharath Lyon MD Unavailable Corine Neil MD Unavailable Valeri Goodwin MD Primary Care Provider +- [phone] Pcp, Unknown Primary Care Provider Unavailabl e Kerwin Marks DO Primary Care Provider Encounter Details Date Type Department Care Team (Late st Contact Info) Description 03/01/2019 Procedure Pass [facility] Imaging [address] [place] [address] Social History Tobacco Use Types Packs/Day Years [...] 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 Not on file Not on f ile documented as of this encounter Plan of Treatment Not on file documented as of this encounter Visit Diagnoses Not on filedocumented in this encounter Care Teams Inspector Elevators Relationship Specialty Start Date End Date Valeri Goodwin MD [address] [place] [address], [address] [place] [address] PCP - General 08/06/17 03/04/22 Pcp, Unknown PCP - General 03/05/22 03/05/22 Kerwin Marks DO [address] [address] PCP - General Family Medicine 09/13/24 Brenton Morales MD [address] [place] [address], [address] [place] [address] Historical LMR Provider 05/24/17 08/10/21 Valeri Goodwin MD [address] [place] [address], [address] [place] [address] Historical LMR Provider 05/24/17 2 Zan Brown CNP [address] [place] [address], [address] [place] [address] Historical LMR Provider 05/24/17 08/10/21 Sharona Velasco, CLIPMAN [address] [place] [address] Historical LMR Provider 05/24/17 2 Jd Murray MD 22 [facility], [address] [place] [address] [email or web address] Historical LMR Provider 05/24/17 2 Bharath Lyon MD [address] [place] [phone] Historical LMR Provider 05/24/17 2 Corine Neil MD 46 [facility] [address] [place] [address] [email or web address] Historical LMR Provider 05/24/17 08/10/21 documented as of this encounter Additional Source Comments The information contained in this document represents components of the legal health record. It is not the complete legal health record.[facility]
--- OUTSIDE RECORDS SUMMARY | 2025-04-25 12:48 | XMS_ITS | Encounter Summary ---
Author Organization [facility] Address [address] [facility] [address] [place] [address] Phone Care Team Providers Care Internal Grinder Tender Name Role Phone Brenton Morales MD Unavailable [phone] Valeri Goodwin MD Unavailable [phone] Zan Brown INVESTIGATIONS CONSULTANT Unavailable [phone] Sharona Velasco SCRUMMASTER Unavailable [phone] Jd Murray MD Unavailable [phone] Bharath Lyon MD Unavailable Corine Neil MD Unavailable Valeri Goodwin MD Primary Care Provider +- [phone] Pcp, Unknown Primary Care Provider Unavailabl e Kerwin Marks DO Primary Care Provider Encounter Details Date Type Department Care Team (Late st Contact Info) Description 03/01/2019 Procedure Pass [facility] Imaging [address] [place] [address] Social History Tobacco Use Types Packs/Day Years [...] 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 on file Not on f ile documented as of this encounter Plan of Treatment Not on file documented as of this encounter Visit Diagnoses Not on filedocumented in this encounter Care Teams Internal Grinder Tender Relationship Specialty Start Date End Date Valeri Goodwin MD [address] [place] [address], [address] [place] [address] PCP - General 08/06/17 03/04/22 Pcp, Unknown PCP - General 03/05/22 03/05/22 Kerwin Marks DO [address] [address] PCP - General Family Medicine 09/13/24 Brenton Morales MD [address] [place] [address], [address] [place] [address] Historical LMR Provider 05/24/17 08/10/21 Valeri Goodwin MD [address] [place] [address], [address] [place] [address] Historical LMR Provider 05/24/17 2 Zan Brown CNP [address] [place] [address], [address] [place] [address] Historical LMR Provider 05/24/17 08/10/21 Sharona Velasco, SCRUMMASTER [address] [place] [address] Historical LMR Provider 05/24/17 2 Jd Murray MD 22 [facility], [address] [place] [address] [email or web address] Historical LMR Provider 05/24/17 2 Bharath Lyon MD [address] [place] [id number] Historical LMR Provider 05/24/17 2 Corine Neil MD 46 [facility] [address] [place] [address] [email or web address] Historical LMR Provider 05/24/17 08/10/21 documented as of this encounter Additional Source Comments The information contained in this document represents components of the legal health record. It is not the complete legal health record.[facility]
--- OUTSIDE RECORDS SUMMARY | 2025-04-25 12:48 | XMS_ITS | Clinical Summary ---
Author Organization [facility] Address [address] [facility] [address] [place] [address] Phone Care Team Providers Care Channel Lip Stiffener Insoles Name Role Phone Kerwin Marks DO Primary Care Provider [phone] Allergies Active Allergy Reactions Criticality Noted Date Comments Doxycycline Monohydrate GI Upset 12/10/2017 Methotrexate Itching 12/10/2017 Minocycline GI Upset 12/10/2017 Mycophenolate Mofetil Itching Medium 02/25/2019 Itching and anxiety Medications LORazepam (ATIVAN) 0.5 MG tablet Take 1 tablet (0.5 mg total) by mouth daily as needed for anxiety. 10 tablet 02/18/2018 Active omeprazole (PRILOSEC) 20 mg TbEC Take 20 mg by mouth 2 (two) times a day. Active SUMAtriptan (IMITREX) 25 MG tabletIndicatio ns:Migraine TAKE 1 TABLET BY MOUTH 2 TIMES A DAY NEEDED FOR MIGRAINE. NOT TO EXCEED 200 MG/DAY 9 tablet 2 11/23/2020 Active predniSONE (DELTASONE) 2.5 MG tablet Take 3 tablets by mouth every morning. 11/09/2024 Active MYFORTIC [address] tablet Take 180 mg by mouth 2 (two) times a day. Active MAGNESIUM MALATE, BULK, MISC 200 mg 2 (two) times a day. Active lifitegrast (XIIDRA) 5 % ophthalmic solution Place 1 drop into each eye 2 (two) times a day. Active azaTHIOprine (AZASAN) 100 mg tablet daily. 11/05/2024 Active azaTHIOprine (IMURAN) 50 mg tablet Active Active Problems Problem Noted Date Diagnosed Date Celiac disease 07/14/2018 Paresthesia of both hands 07/14/2018 Neuropathy 07/14/2018 Nontoxic multinodular goiter 01/20/2018 Right thyroid nodule 01/19/2018 Overview (01/19/2018): U/S January 2018 - 1.4 cm Depression with anxiety 12/10/2017 Sjogren's syndrome 12/10/2017 SLE (systemic lupus erythematosus related syndro me) 12/10/2017 Immunizations Immunization Administration Dates Next Due COVID-19 (Pre-05/25) Moderna Vaccine, mRNA, PF 0 08/04/2020 INFLUENZA, SPLIT VIRUS, TRIVALENT W/ PRESERVATIV E IM 06/12/2011 Influenza Recombinant Josse valent Preservative Free IM 05/17/2018 Influenza trivalent preservative free intraderma l 05/19/2014,05/17/2013 Influenza, Unspecified Formulation 05/15/2020, Tdap 02/27/2011 Family History Medical History Relation Comments ADD / ADHD Brother Diabetes Father Hypertension Father Long QT syndrome Mother Thyroid disease Mother Relation Status Comments Brother Alive Father Alive Mother Alive Social History Tobacco Use Types Packs/Day Years Used Date Smoking Tobacco: Never Smokeless Tobacco: Never Tobacco Cessation:Counseling Given: Not Answered Alcohol Use Standard Drinks/Week Comments No 0 [...] 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 file Not on f ile Last Filed Vital Signs Vital Sign Reading Time Taken Comments Blood Pressure 125/89 11/16/2024 1:00 PM EDT Pulse 72 11/16/2024 1:00 PM EDT Temperature 36.6 C (97.9 F) 11/16/2024 1:00 PM EDT Respiratory Rate - - Oxygen Saturation 99% 11/16/2024 1:00 PM EDT Inhaled Oxygen Concentration - - Weight 81.6 kg (180 lb) 11/16/2024 1:00 PM EDT Height 160.7 cm (5' 3.27 ) 11/16/2024 1:00 PM ED T Body Mass Index 31.61 11/16/2024 1:00 PM EDT Plan of Treatment Health Maintenance Due Date Last Done Comments ALKALINE PHOSPHATASE LEVEL 1984 DEPRESSION SCREENING 1996 PNEUMOCOCCAL VACCINES (0-49 years) (1 of 2 - PCV) 2003 SCREENING FOR DIABETES 2019 Adult Td,Tdap Booster 02/27/2021 02/27/2011 CREATININE LEVEL 08/09/2021 08/09/2020, , 06/20/2019, Additional history exists PAP SMEAR 01/31/2022 01/31/2019, 10/24/2014 MAMMOGRAM 2024 INFLUENZA VACCINE (#1) 2025 , 06/05/2022, 06/06/2021, Additional history exists COVID-19 VACCINE (2024- season) 2025 02/13/2022, 06/21/2021, 09/01/2020, Additional history exists HEPATITIS C SCREENING Completed 05/04/2018 HIV ONE-TIME SCREENING (18-65 YEARS) Completed 08/03/2018 SMOKING STATUS SCREENING (Once After 26 Yrs) Completed 11/16/2024 HEPATITIS A VACCINES Aged Out No long er eligible based on patient's age to complete this topic HIB VACCINES Aged Out No longer eligi ble based on patient's age to complete this topic MENINGOCOCCAL VACCINES (ACWY) Aged Out No longer eligible based on patient's age to complete this topic MENINGOCOCCAL VACCINES (B) Aged Out N o longer eligible based on patient's age to complete this topic Medical Devices Not on file Procedures Procedure Name Priority Date/Time Associated Diagnosis Comments BASIC METABOLIC PANEL Routine 08/09/2020 HM PAP SMEAR FOR RESULT ENTRY ONLY Routine 01/31/2019 OUTSIDE HIV Routine 08/03/2018 HEPATITIS C ANTIBODY, QUALITATIVE Routine 05/04/2018 9:52 AM EDT Paresthesias from Last 3 Months or Most Recently Relevant to Health Maintenance Results * Basic metabolic panel (08/09/2020) Valeri Goodwin MD LAB BLOOD ORDERABLES Edite d Result - Final * HM PAP SMEAR FOR RESULT ENTRY ONLY (01/31/2019) Pap smear neg/hpv neg Historical Provider HEALTH MAINTENANCE Final Result * OUTSIDE HIV TEST (08/03/2018) HIV - External Neg (patient reported) Historical Provider LAB BLOOD ORDERABLES Meliza l Result * Hepatitis C antibody, qualitative (05/04/2018 9:52 AM EDT) Blood Valeri Goodwin MD LAB BLOOD ORDERABLES Final Result [facility] [address] [place] [address] from Last 3 Months or Most Recently Relevant to Health Maintenance [facility] Care Teams Channel Lip Stiffener Insoles Relationship Specialty Start Date End Date [facility] [address] [address] PCP - General Family Medicine 09/13/24 Additional Source Comments The information contained in this document represents components of the legal health record. It is not the complete legal health record.[facility]
--- OUTSIDE RECORDS SUMMARY | 2025-04-25 12:48 | XMS_ITS | Encounter Summary ---
Author Organization [facility] Address [address] [facility] [address] [place] [address] Phone Care Team Providers Care Sanitary Landfill Supervisor Name Role Phone Brenton Morales MD Unavailable [phone] Valeri Goodwin MD Unavailable [phone] Zan Brown FINISHING TRIMMER Unavailable [phone] Sharona Velasco AUTOMOTIVE MECHANICAL ENGINEER Unavailable [phone] Jd Murray MD Unavailable [phone] Bharath Lyon MD Unavailable [phone] Corine Neil MD Unavailable Valeri Goodwin MD Primary Care Provider +- [phone] Pcp, Unknown Primary Care Provider Unavailabl e Kerwin Marks DO Primary Care Provider Encounter Details Date Type Department Care Team (Late st Contact Info) Description 03/01/2019 Procedure Pass [facility] Imaging [address] [place] [address] Social History Tobacco Use Types Packs/Day Years [...] 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 Not on file Not on f ile documented as of this encounter Plan of Treatment Not on file documented as of this encounter Visit Diagnoses Not on filedocumented in this encounter Care Teams Sanitary Landfill Supervisor Relationship Specialty Start Date End Date Valeri Goodwin MD [address] [place] [address], [address] [place] [address] PCP - General 08/06/17 03/04/22 Pcp, Unknown PCP - General 03/05/22 03/05/22 Kerwin Marks DO [address] [address] PCP - General Family Medicine 09/13/24 Brenton Morales MD [address] [place] [address], [address] [place] [address] Historical LMR Provider 05/24/17 08/10/21 Valeri Goodwin MD [address] [place] [address], [address] [place] [address] Historical LMR Provider 05/24/17 2 Zan Brown CNP [address] [place] [address], [address] [place] [address] Historical LMR Provider 05/24/17 08/10/21 Sharona Velasco, AUTOMOTIVE MECHANICAL ENGINEER [address] [place] [address] Historical LMR Provider 05/24/17 2 Jd Murray MD 22 [facility], [address] [place] [address] [email or web address] Historical LMR Provider 05/24/17 2 Bharath Lyon MD [address] [place] [phone] Historical LMR Provider 05/24/17 2 Corine Neil MD [address] [facility] [address] [place] [address] [email or web address] Historical LMR Provider 05/24/17 08/10/21 documented as of this encounter Additional Source Comments The information contained in this document represents components of the legal health record. It is not the complete legal health record.[facility]
--- OUTSIDE RECORDS SUMMARY | 2025-04-25 12:48 | XMS_ITS | Encounter Summary ---
Author Organization [facility] Address [address] [facility] [address] [place] [address] Phone Care Team Providers Care Exercise Teacher Name Role Phone Brenton Morales MD Unavailable [phone] Valeri Goodwin MD Unavailable [phone] Zan Brown ELECTRIC BLANKET WIRER Unavailable [phone] Sharona Velasco MARRIAGE COUNSELOR Unavailable [phone] Jd Murray MD Unavailable [phone] Bharath Lyon MD Unavailable Corine Neil MD Unavailable Valeri Goodwin MD Primary Care Provider +- [phone] Pcp, Unknown Primary Care Provider Unavailabl e Kerwin Marks DO Primary Care Provider Encounter Details Date Type Department Care Team (Late st Contact Info) Description 03/01/[address] 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 Not on file Not on f ile documented as of this encounter Plan of Treatment Not on file documented as of this encounter Visit Diagnoses Not on filedocumented in this encounter Care Teams Exercise Teacher Relationship Specialty Start Date End Date Valeri Goodwin MD [address] [place] [address], [address] [place] [address] PCP - General 08/06/17 03/04/22 Pcp, Unknown PCP - General 03/05/22 03/05/22 Kerwin Marks DO [address] [address] PCP - General Family Medicine 09/13/24 Brenton Morales MD [address] [place] [address], [address] [place] [address] Historical LMR Provider 05/24/17 08/10/21 Valeri Goodwin MD [address] [place] [address], [address] [place] [address] Historical LMR Provider 05/24/17 2 Zan Brown CNP [address] [place] [address], [address] [place] [address] Historical LMR Provider 05/24/17 08/10/21 Sharona Velasco, MARRIAGE COUNSELOR [address] [place] [address] Historical LMR Provider 05/24/17 2 Jd Murray MD 22 [facility], [address] [place] [address] [email or web address] Historical LMR Provider 05/24/17 2 Bharath [place] MD [address] [place] [phone] Historical LMR Provider 05/24/17 2 Corine Neil MD 46 [facility] [address] [place] [address] [email or web address] Historical LMR Provider 05/24/17 08/10/21 documented as of this encounter Additional Source Comments The information contained in this document represents components of the legal health record. It is not the complete legal health record.[facility]
--- OUTSIDE RECORDS SUMMARY | 2025-04-25 12:48 | XMS_ITS | Encounter Summary ---
Author Organization [facility] Address [address] [place] [address] [place] [address] Phone Care Team Providers Care Personal Banking Representative Name Role Phone Brenton Morales MD Unavailable [phone] Valeri Goodwin MD Unavailable [phone] Zan Brown DRAIN TILE MACHINE OPERATOR Unavailable [phone] Sharona Velasco ABSENCE MANAGEMENT CONSULTANT Unavailable [phone] Jd Murray MD Unavailable [phone] Bharath Lyon MD Unavailable Corine Neil MD Unavailable [phone] Valeri Goodwin MD Primary Care Provider [phone] Pcp, Unknown Primary Care Provider Unavailhailee e Kerwin Marks DO Primary Care Provider Reason for Referral * MRI/CAT Scan - Closed Specialty Diagnoses / Procedures Referred By Contac t Referred To Contact Procedures MRI Neck Outside (No Interpretation) System, Provider Not In, PhD [address] [address] Referral ID Status Reason Start Date Expiration Date Visits Re quested Visits Authorized [id number] Closed 02/08/2018 02/08/2019 1 1 * MRI/CAT Scan - Closed Specialty Diagnoses / Procedures Referred By Contac t Referred To Contact Procedures MRI Brain Outside (No Interpretation) System, Provider Not In, PhD Partners [address] [address] Referral ID Status Reason Start Date Expiration Date Visits Re quested Visits Authorized [id number] Closed 02/08/2018 02/08/2019 1 1 Encounter Details Date Type Department Care Team (Late st Contact Info) Description 02/08/2018 Ancillary Orders ,Outside Imaging [address] [place] [address] System, Provider Not In, PhD Mau bridger [address] [place] [address] Social History Tobacco Use Types Packs/Day Years [...] 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 us Provider Not In System PhD IMG OUTSIDE IMAGING W /OUT INTERPRETATION Final Result * MRI Brain Outside (No Interpretation) (01/01/2018 12:00 AM EDT) Narrative SYSTEMGENERATED, DOCUMENTATION - 02/08/2018 5:01 PM EDT This study is for PACS storage only and not for interpretation. us Provider Not In System PhD IMG OUTSIDE IMAGING W /OUT INTERPRETATION Final Result documented in this encounter Visit Diagnoses Not on filedocumented in this encounter Care Teams Personal Banking Representative Relationship Specialty Start Date End Date Valeri Goodwin MD [address] [place] [address], [address] [place] [address] PCP - General 08/06/17 03/04/22 Pcp, Unknown PCP - General 03/05/22 03/05/22 Kerwin Marks DO [address] [facility] [address] [place] [address] PCP - General Family Medicine 09/13/24 Brenton Morales MD [address] [place] [address], [address] [place] [address] Historical LMR Provider 05/24/17 08/10/21 Valeri Goodwin MD [address] [place] [address], [address] [place] [address] Historical LMR Provider 05/24/17 2 Zan Brown, DRAIN TILE MACHINE OPERATOR [address] [place] [address], [address] [place] [address] Historical LMR Provider 05/24/17 08/10/21 Sharona Velasco, ABSENCE MANAGEMENT CONSULTANT [address] [place] [address] Historical LMR Provider 05/24/17 2 Jd Murray MD [address] [place] [address], [address] [place] [address] Historical LMR Provider 05/24/17 2 Bharath Lyon MD [address] [place] [address] Historical LMR Provider 05/24/17 2 Corine Neil MD [address] [place] [address] [email or web address] Historical LMR Provider 05/24/17 08/10/21 documented as of this encounter Additional Source Comments The information contained in this document represents components of the legal health record. It is not the complete legal health record.[facility]
--- OUTSIDE RECORDS SUMMARY | 2025-04-25 12:48 | XMS_ITS | Encounter Summary ---
Author Organization [facility] Address [address] [facility] [address] [place] [address] Phone Care Team Providers Care Sports Health Club Membership Advisors Name Role Phone Brenton Morales MD Unavailable [phone] Valeri Goodwin MD Unavailable [phone] Zan Brown WIND TUNNEL TECHNICIAN Unavailable [phone] Sharona Velasco PILOT SUBMERSIBLE Unavailable [phone] Jd Murray MD Unavailable Bharath Lyon MD Unavailable Corine Neil MD Unavailable Valeri Goodwin MD Primary Care Provider [phone]- [phone] Pcp, Unknown Primary Care Provider Unavailabl e Kerwin Marks DO Primary Care Provider [phone] Encounter Details Date Type Department Care Team (Late st Contact Info) Description 03/01/2019 Procedure Pass [facility] [address] [place] [address] Social History Tobacco Use Types Packs/Day Years [...] 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 file Not on f ile documented as of this encounter Plan of Treatment Not on file documented as of this encounter Visit Diagnoses Not on filedocumented in this encounter Care Teams Sports Health Club Membership Advisors Relationship Specialty Start Date End Date Valeri Goodwin MD [address] [place] [address], [address] [place] [address] PCP - General 08/06/17 03/04/22 Pcp, Unknown PCP - General 03/05/22 03/05/22 Kerwin Marks DO [address] [address] PCP - General Family Medicine 09/13/24 Brenton Morales MD [address] [place] [address], [address] [place] [address] Historical LMR Provider 05/24/17 08/10/21 Valeri Goodwin MD [address] [place] [address], [address] [place] [address] Historical LMR Provider 05/24/17 2 Zan Brown CNP [address] [place] [address], [address] [place] [address] Historical LMR Provider 05/24/17 08/10/21 Sharona Velasco, PILOT SUBMERSIBLE [address] [place] [address] Historical LMR Provider 05/24/17 2 Jd Murray MD 22 [facility], [address] [place] [address] [email or web address] Historical LMR Provider 05/24/17 2 Bharath Lyon MD [address] [place] [phone] Historical LMR Provider 05/24/17 2 Corine Neil MD 46 [facility] [address] [place] [address] [email or web address] Historical LMR Provider 05/24/17 08/10/21 documented as of this encounter Additional Source Comments The information contained in this document represents components of the legal health record. It is not the complete legal health record.[facility]
--- OUTSIDE RECORDS SUMMARY | 2025-04-25 12:48 | XMS_ITS | Encounter Summary ---
Author Organization [facility] Address [address] [facility] [address] [place] [address] Phone Care Team Providers Care Body Engineer Name Role Phone Brenton Morales MD Unavailable +[phone] Valeri Goodwin MD Unavailable +[phone] Zan Brown RN RADIATION Unavailable [phone] Sharona Velasco FIRE PROTECTION EQUIPMENT TECHNICIAN Unavailable [phone] Jd Murray MD Unavailable [phone] Bharath Lyon MD Unavailable Corine Neil MD Unavailable [phone] Valeri Goodwin MD Primary Care Provider [phone] Pcp, Unknown Primary Care Provider Unavailabl e Kerwin Marks DO Primary Care Provider Encounter Details Date Type Department Care Team (Late st Contact Info) Description 02/08/2018 Procedure Pass [facility],Outside Imaging [address] [place], [place] [id number] Social History Tobacco Use Types Packs/Day Years [...] 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 Not on f ile documented as of this encounter Plan of Treatment Not on file documented as of this encounter Visit Diagnoses Not on filedocumented in this encounter Care Teams Body Engineer Relationship Specialty Start Date End Date Valeri Goodwin MD [address] [place] [address], [address] [place] [address] PCP - General 08/06/17 03/04/22 Pcp, Unknown PCP - General 03/05/22 03/05/22 Kerwin Marks DO [address] [facility] [address] [place] [address] PCP - General Family Medicine 09/13/24 Brenton Morales MD [address] [place] [address], [address] [place] [address] Historical LMR Provider 05/24/17 08/10/21 Valeri Goodwin MD [address] [place] [address], [address] [place] [address] Historical LMR Provider 05/24/17 2 Zan Brown, JAMILAH [address] [place] [address], [address] [place] [address] Historical LMR Provider 05/24/17 08/10/21 Sharona Velasco, FIRE PROTECTION EQUIPMENT TECHNICIAN [address] [place] [address] Historical LMR Provider 05/24/17 2 Jd Murray MD 22 [facility], [address] [place] [address] Historical LMR Provider 05/24/17 2 Bharath Lyon MD [address] [place] [phone] Historical LMR Provider 05/24/17 2 Corine Neil MD 46 [facility] [address] [place] [address] [email or web address] Historical LMR Provider 05/24/17 08/10/21 documented as of this encounter Additional Source Comments The information contained in this document represents components of the legal health record. It is not the complete legal health record.[facility]
--- OUTSIDE RECORDS SUMMARY | 2025-04-25 12:48 | XMS_ITS | Encounter Summary ---
Author Organization [facility] Address [address] [facility] [address] [place] [address] Phone Care Team Providers Care Information Security Analyst Name Role Phone Brenton Morales MD Unavailable [phone] Valeri Goodwin MD Unavailable +[phone] Zan Brown ADJUSTER ELECTRICAL CONTACTS Unavailable [phone] Sharona Velasco ULTRASOUND TESTER Unavailable [phone] Jd Murray MD Unavailable [phone] Bharath Lyon MD Unavailable Corine Neil MD Unavailable Valeri Goodwin MD Primary Care Provider [phone] Pcp, Unknown Primary Care Provider Unavailabl e Kerwin Marks DO Primary Care Provider Encounter Details Date Type Department Care Team (Late st Contact Info) Description 03/01/2019 Procedure Pass [facility] Imaging [address] [place] [address] Social History Tobacco Use Types Packs/Day Years [...] 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 Not on file Not on f ile documented as of this encounter Plan of Treatment Not on file documented as of this encounter Visit Diagnoses Not on filedocumented in this encounter Care Teams Information Security Analyst Relationship Specialty Start Date End Date Valeri Goodwin MD [address] [place] [address], [address] [place] [address] PCP - General 08/06/17 03/04/22 Pcp, Unknown PCP - General 03/05/22 03/05/22 Kerwin Marks DO [address] [address] PCP - General Family Medicine 09/13/24 Brenton Morales MD [address] [place] [address], [address] [place] [address] Historical LMR Provider 05/24/17 08/10/21 Valeri Goodwin MD [address] [place] [address], [address] [place] [address] Historical LMR Provider 05/24/17 2 Zan Brown CNP [address] [place] [address], [address] [place] [address] Historical LMR Provider 05/24/17 08/10/21 Sharona Velasco, ULTRASOUND TESTER [address] [place] [address] Historical LMR Provider 05/24/17 2 Jd Murray MD 22 [facility], [address] [place] [address] [email or web address] Historical LMR Provider 05/24/17 2 Bharath Lyon MD [address] [place] [phone] Historical LMR Provider 05/24/17 2 Corine Neil MD 46 [facility] [address] [place] [address] [email or web address] Historical LMR Provider 05/24/17 08/10/21 documented as of this encounter Additional Source Comments The information contained in this document represents components of the legal health record. It is not the complete legal health record.[facility]
--- OUTSIDE RECORDS SUMMARY | 2025-04-25 12:48 | XMS_ITS | Encounter Summary ---
Author Organization [facility] Address [address] [facility] [address] [place] [address] Phone Care Team Providers Care Case Finishing Machine Adjuster Name Role Phone Brenton Morales MD Unavailable +[phone] Valeri Goodwin MD Unavailable [phone] Zan Brown METALLURGICAL TESTER Unavailable [phone] Sharona Velasco TELEPRINTER Unavailable [phone] Jd Murray MD Unavailable [phone] Bharath Lyon MD Unavailable Corine Neil MD Unavailable [phone] Valeri Goodwin MD Primary Care Provider [phone] Pcp, Unknown Primary Care Provider Unavailabl e Kerwin Marks DO Primary Care Provider Encounter Details Date Type Department Care Team (Late st Contact Info) Description 02/08/2018 Procedure Pass [facility],Outside Imaging [address] [place], [place] [phone] Social History Tobacco Use Types Packs/Day Years [...] 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 Not on file Not on f ile documented as of this encounter Plan of Treatment Not on file documented as of this encounter Visit Diagnoses Not on filedocumented in this encounter Care Teams Case Finishing Machine Adjuster Relationship Specialty Start Date End Date Valeri Goodwin MD [address] [place] [address], [address] [place] [address] PCP - General 08/06/17 03/04/22 Pcp, Unknown PCP - General 03/05/22 03/05/22 Kerwin Marks DO [address] [facility] [address] [place] [address] PCP - General Family Medicine 09/13/24 Brenton Morales MD [address] [place] [address], [address] [place] [address] Historical LMR Provider 05/24/17 08/10/21 Valeri Goodwin MD [address] [place] [address], [address] [place] [address] Historical LMR Provider 05/24/17 2 Zan Brown, JAMILAH [address] [place] [address], [address] [place] [address] Historical LMR Provider 05/24/17 08/10/21 Sharona Velasco, TELEPRINTER [address] [place] [address] Historical LMR Provider 05/24/17 2 Jd Murray MD 22 [facility], [address] [place] [address] Historical LMR Provider 05/24/17 2 Bharath Lyon MD [address] [place] [phone] Historical LMR Provider 05/24/17 2 Corine Neil MD [address] [facility] [address] [place] [address] [email or web address] Historical LMR Provider 05/24/17 08/10/21 documented as of this encounter Additional Source Comments The information contained in this document represents components of the legal health record. It is not the complete legal health record.[facility]
--- OUTSIDE RECORDS SUMMARY | 2025-04-25 12:48 | XMS_ITS | Encounter Summary ---
Author Organization [facility] Address [address] [facility] [address] [place] [address] Phone Care Team Providers Care Tv News Director Name Role Phone Brenton Morales MD Unavailable [phone] Valeri Goodwin MD Unavailable +[phone] Zan Brown EMERGENCY DEPARTMENT Unavailable [phone] Sharona Velasco MELTER SUPERVISOR OXYGEN FURNACE Unavailable [phone] Jd Murray MD Unavailable [phone] Bharath Lyon MD Unavailable Corine Neil MD Unavailable Valeri Goodwin MD Primary Care Provider [phone] Pcp, Unknown Primary Care Provider Unavailabl e Kerwin Marks DO Primary Care Provider Encounter Details Date Type Department Care Team (Late st Contact Info) Description 03/01/2019 Procedure Pass [facility] Imaging [address] [place] [address] Social History Tobacco Use Types Packs/Day Years [...] 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 file Not on f ile documented as of this encounter Plan of Treatment Not on file documented as of this encounter Visit Diagnoses Not on filedocumented in this encounter Care Teams Tv News Director Relationship Specialty Start Date End Date Valeri Goodwin MD [address] [place] [address], [address] [place] [address] PCP - General 08/06/17 03/04/22 Pcp, Unknown PCP - General 03/05/22 03/05/22 Kerwin Marks DO [address] [address] PCP - General Family Medicine 09/13/24 Brenton Morales MD [address] [place] [address], [address] [place] [address] Historical LMR Provider 05/24/17 08/10/21 Valeri Goodwin MD [address] [place] [address], [address] [place] [address] Historical LMR Provider 05/24/17 2 Zan Brown CNP [address] [place] [address], [address] [place] [address] Historical LMR Provider 05/24/17 08/10/21 Sharona Velasco, MELTER SUPERVISOR OXYGEN FURNACE [address] [place] [address] Historical LMR Provider 05/24/17 2 Jd Murray MD 22 [facility], [address] [place] [address] [email or web address] Historical LMR Provider 05/24/17 2 Bharath Lyon MD [address] [place] [phone] Historical LMR Provider 05/24/17 2 Corine Neil MD 46 [facility] [address] [place] [address] [email or web address] Historical LMR Provider 05/24/17 08/10/21 documented as of this encounter Additional Source Comments The information contained in this document represents components of the legal health record. It is not the complete legal health record.[facility]
== END 2025-04-25 11:20 | disposition home or self-care (01) ==
LOC: HO.RHES 10:30
PROVIDERS: PCP Family Medicine; Visit Provider Internal Medicine Rheumatology
DX: M35.01 Sjogren syndrome with keratoconjunctivitis (principal); D89.1 Cryoglobulinemia; M13.0 Polyarthritis, unspecified; I73.00 Raynaud's syndrome without gangrene; Z79.899 Other long term (current) drug therapy; Z79.52 Long term (current) use of systemic steroids; D53.9 Nutritional anemia, unspecified
CPT/HCPCS: 99214; G2211

== ENCOUNTER 2025-07-13 14:36 | Outpatient (AMB) | payer OTHER, SELFPAY ==
--- OUTSIDE RECORDS SUMMARY | 2025-07-09 23:59 | XMS_ITS | Continuity of Care Document ---
Author Organization [facility] Danielle Castañeda n's [facility] Address [address] [place] [address], [address] [place] [address]- Care Team Providers Care Nuclear Powerplant Supervisor Name Role Phone Kerwin Marks DO Primary Care Physician [phone] [id number] Date[facility]s): [facility]/09/25 - 07/09/25 [facility] Daniellelouis Baig's [facility] [address] [facility], [address] [place], [place] [address] Encounter Type: Triage Allergies, Adverse Reactions, Alerts Substance Criticality Severity Reaction Reaction Severity Status doxycycline n/v Active methotrexate itch Active Glutens Active minocycline n/v Active Immunizations Given and Recorded Vaccine Date Status Refusal Reason tetanus/diphtheria/pertussis, acel(Tdap) 07/30/16 Given influenza virus vaccine, inactivated 1 05/12/16 Re corded 1Result Comment: [06/05/2016] Pt states she received at her work Medications azaTHIOprine 50 mg oral tablet 30 each, TAKE 1 TABLET BY MOUTH DAILY, Refills 0, 09/26/22 4:09:00 PM EST, Partial fill upon patientrequest if the prescription is for a schedule II opioid drug. Start Date: 09/26/22 Status: Ordered Medication Dispense Status: Completed Total Allowed Fills: 1 Fills Dispensed: 0 Flonase Allergy Relief 50 mcg/inh nasal spray See Instructions, 1 sprays Daily in each nostril, # 16 Gm, 0 Refills, Maintenance, 12/02/24 2:01:00 PM EDT, [facility][id number], Partial fill upon patient request if the prescription is for a schedule II opioid drug., 158, cm, 12/02/24 13:49:00 EDT, Height Start Date: 12/02/24 Status: Ordered Medication Dispense Status: Completed Quantity: 16.0 Unit: g Total Allowed Fills: 1 Fills Dispensed: 0 Indications: Acute sinusitis, unspecified; LORazepam 0.5 mg oral tablet See Instructions, TAKE ONE TABLET AT BEDTIME PRN Mass Telma velásquez, # 30 tablet, 0 Refills, Maintenance, 06/03/25 11:51:00 AM EDT, Tablet, [facility] #[id number], Partial fill upon patient request ifthe prescription is for a schedule II opioid drug., 158, cm, 01/06/25 13:53:00 EDT, Height Start Date: 06/03/25 Status: Ordered Medication Dispense Status: Completed Quantity: 30.0 Unit: tablet Total Allowed Fills: 1 Fills Dispensed: 0 Magnesium Malate 200mg Magnesium Malate 200mg, 2 tablets, Chew, Daily, # 180 tablet, Refills 0, Tot. Refills 0, Maintenance, 08/04/24 3:16:00 PM EST, Supply, 158, cm, 07/25/24 9:45:00 EST, Height, 73.5, kg, 11/20/22 13:48:00EDT, Dry Weight Start Date: 08/04/24 Status: Ordered Medication Dispense Status: Completed Quantity: 180.0 Unit: tablet Total Allowed Fills: 1 Fills Dispensed: 0 Myfortic 360 mg oral delayed release tablet 2 tablet = 720 mg, By Mouth, 2 times a day, # 120 tablet, 0 Refills, Maintenance, 12/02/24 1:48:00 PMEDT, [facility] Tablet, Partial fill upon patient request if the prescription is for a schedule II opioid drug. Start Date: 12/02/24 Status: Ordered Medication Dispense Status: Completed Quantity: 120.0 Unit: tablet Total Allowed Fills: 1 Fills Dispensed: 0 omeprazole 20 mg oral enteric coated capsule 1 capsule = 20 mg, By Mouth, Daily, # 30 capsule, 0 Refills, Maintenance, 08/31/20 9:39:00 AM EST, [facility] Capsule, Partial fill upon patient request if the prescription is for a schedule II opioid drug., 160, cm, 10/18/19 10:50:00 EDT, Height, 59, kg, 12/10/18 8:15:00 EDT, Dry Weight Start Date: 08/31/20 Status: Ordered Medication Dispense Status: Completed Quantity: 30.0 Unit: capsule Total Allowed Fills: 1 Fills Dispensed: 0 Indications: Gastro-esophageal reflux disease without esophagitis; ondansetron 4 mg oral tablet 1 tablet = 4 mg, By Mouth, Every 8 hours, # 12 tablet, 0 Refills, Maintenance, 01/12/24 11:36:00 AM EDT, Tablet, [facility] #[id number], Partial fill upon patient request if the prescription is for a schedule II opioid drug., 158, cm, 01/12/24 11:00:00 EDT, Height, 73.5, kg, 11/20/22 13:48:00 EDT, Dry Weight Start Date: 01/12/24 Status: Ordered Medication Dispense Status: Completed Quantity: 12.0 Unit: tablet Total Allowed Fills: 1 Fills Dispensed: 0 Indications: Nausea with vomiting, unspecified; predniSONE 2.5 mg oral tablet 3 tablet = 7.5 mg, By Mouth, Daily, 0 Refills, Maintenance, 12/02/24 1:49:00 PM EDT, Partial fill upon patient request if the prescription is for a schedule II opioid drug. Start Date: 12/02/24 Status: Ordered Medication Dispense Status: Completed Total Allowed Fills: 1 Fills Dispensed: 0 Xiidra 5% ophthalmic solution 1 drops, Eyes, Both, 2 times a day, 0 Refills, Maintenance, 11/20/22 1:50:00 PM EDT, Partial fill upon patient request if the prescription is for a schedule II opioid drug. Start Date: 11/20/22 Status: Ordered Medication Dispense Status: Completed Total Allowed Fills: 1 Fills Dispensed: 0 Problem List Condition Confirmation Course Effective Dates Status H ealth Status Informant Abnormal uterine bleeding (AUB) Confirmed Active Celiac disease Confirmed Active Fungal rash of torso Confirmed Active GERD without esophagitis Confirmed Active Gluten intolerance Confirmed Active Hoarseness Confirmed Active Hypomagnesemia Confirmed Active Inflammatory neuropathy Confirmed Active Mixed anxiety and depressive disorder Confirmed Active Multinodular goiter Confirmed Active Obese class I Confirmed Active Tinea versicolor Confirmed Active Proteinuria Confirmed Active Raynaud disease Confirmed Active Sj gren's syndrome Confirmed Active Right thyroid nodule Confirmed Active Ulcers of both lower legs Confirmed Active Patient Care team information Care Team Personnel Name: Rolan HERNANDEZ, Ethel Godfrey Position: [facility] CV RN MD Member Role: Lifetime CV RN Physician Address: [address] [place], [place] [address]s [facility] [employer] [place], [place] [address] Telecom: Name: Archana Ruvalcaba Position: [facility] Outreach Member Role: Lifetime Consulting Physician Name: Kathrin Guevara RN Position: [facility] AMB Nurse Member Role: Primary Care Nurse Name: Kerwin Marks DO Position: [facility] Physician - Primary Care Member Role: PCP Address: [address] [place] [id number] Telecom: Name: Antonino Tellez RN Position: [facility] OB RN Member Role: Primary Care Nurse Care Team Related Persons Name: GRANT BECKHAM Name: CASH CARRASQUILLO Insurance Providers Guarantor name: BARBER BECKHAM Health Plan Information #: 1 Payer: [employer] [facility] PPO Payer Identifier: KIKE Member Number: [id number] Group Number: [id number] Subscriber Identifier: KIKE Relationship to Subscriber: self Coverage Type: Other Private Insurance Coverage Verification Date: NA Telecom: NA Address:
--- OUTSIDE RECORDS SUMMARY | 2025-07-09 23:59 | XMS_ITS | Continuity of Care Document ---
Author Organization [facility] Address [address] [place] [address]- Care Team Providers Care Animal Herder Name Role Phone Kerwin Marks DO Primary Care Physician [phone] [id number] Date[facility]s): 06/09/25 - 07/09/25 [facility] [address] [place], [place] [address] Encounter Type: Triage Allergies, Adverse Reactions, [...] 0 Refills, Maintenance, 12/02/24 2:01:00 PM EDT, [facility] #[id number], Partial fill upon patient request if the [...] Refills, Maintenance, 06/03/25 11:51:00 AM EDT, Tablet, [facility] #[id number], Partial fill upon patient request ifthe prescription [...] Refills, Maintenance, 01/12/24 11:36:00 AM EDT, Tablet, [facility] #[id number], Partial fill upon patient request if the [...] Care team information Care Team Personnel Name: Ethel Gongora MD Position: [facility] PLANNER INTERN MD Member Role: Lifetime PLANNER INTERN Physician Address: [address] [place], [place] [address]s [facility] [employer] Processing Technician - [place], [place] [address] Telecom: Name: Archana Ruvalcaba Position: [facility] Outreach Member Role: Lifetime Consulting Physician Name: Kathrin Guevara RN Position: [facility] AMB Nurse Member Role: Primary Care Nurse Name: Kerwin Marks DO Position: [facility] Physician - Primary Care Member Role: PCP Address: [address] [place] [id number] Telecom: Name: Antonino Tellez RN Position: [facility] OB RN Member Role: Primary Care Nurse Care Team Related Persons Name: GRANT BECKHAM Name: CASH CARRASQUILLO Insurance Providers Guarantor name: BARBER BECKHAM Health Plan Information #: 1 Payer: [employer] [facility] PPO Payer Identifier: KIKE Member Number: [id number] Group Number: [id number] Subscriber Identifier: KIKE Relationship to Subscriber: self Coverage Type: Other Private Insurance Coverage Verification Date: NA Telecom: Address:
--- OUTSIDE RECORDS SUMMARY | 2025-07-09 23:59 | XMS_ITS | Continuity of Care Document ---
Author Organization [facility] Address [address] [place] [address]- Care Team Providers Care Ic Designer Custom Name Role Phone Kerwin Marks DO Primary Care Physician [id number] - 07/09/25 [facility] [address] [place], [place] [address] [[email or web address] Encounter Type: Triage Allergies, Adverse Reactions, Alerts [...] 0 Refills, Maintenance, 12/02/24 2:01:00 PM EDT, [facility] #[id number], Partial fill upon patient request if the [...] Refills, Maintenance, 06/03/25 11:51:00 AM EDT, Tablet, [facility] #[id number], Partial fill upon patient request ifthe prescription [...] Refills, Maintenance, 01/12/24 11:36:00 AM EDT, Tablet, [id number], Partial fill upon patient request if the [...] Team Personnel Name: Ethel Gongora MD Position: [facility] RADIATION PHYSICIST MD Member Role: Lifetime RADIATION PHYSICIST Physician Address: [address] [place], [place] [address]s Health Director [employer] - [place], [place] [address] [[email or web address]] Telecom: Name: Archana Ruvalcaba Position: [facility] Outreach Member Role: Lifetime Consulting Physician Name: Kathrin Guevara RN Position: [facility] AMB Nurse Member Role: Primary Care Nurse Name: Kerwin Marks DO Position: [facility] Physician - Primary Care Member Role: PCP Address: [address] [place] [id number] [[email or web address] Telecom: Name: Antonino Tellez RN Position: [facility] OB RN Member Role: Primary Care Nurse Care Team Related Persons Name: GRANT BECKHAM Name: CASH CARRASQUILLO Insurance Providers Guarantor name: BARBER BECKHAM Health Plan Information #: 1 Payer: [employer] [facility] PPO Payer Identifier: KIKE Member Number: [id number] Group Number: [id number] Subscriber Identifier: KIKE Relationship to Subscriber: self Coverage Type: Other Private Insurance Coverage Verification Date: KIKE Telecom: Address:
--- NOTE | 2025-07-13 14:38 | MHC.OFFVIS ---
Vital Signs 07/13/25 14:39 Height 5 ft 3 in Weight 180 lb 8.937 oz BMI 32.0 BP 110/80 Blood Pressure Location Rt brachial Position Sitting Pulse 69 Pulse Source Pulse Oximeter Pulse Oximetry (%) 100 Oxygen Delivery Method Room Air Intake Visit Reasons: discuss Kasia/ Charles HERNANDEZ Intake Note: Patient presents today for follow up on sjorggen's Accompanied by: Self / Same As Patient Allergies doxycycline Allergy (Mild, Verified 07/13/25 14:39) Rash methotrexate Allergy (Mild, Verified 07/13/25 14:39) Itching minocycline Allergy (Mild, Verified 07/13/25 14:39) Vomiting rituximab Allergy (Mild, Verified 07/13/25 14:39) rash, body pain HPI HPI discuss Kasia/ Charles MD: Details: She has been on prednisone 10 mg daily with improvement in fatigue, joint pain and skin lesions. Today is the 1st day she has not had any new vasculitic lesions on her legs. Right arm skin lesion is improving. Prior to prednisone she was stiff all day especially when getting up from seated position. She is experiencing Raynaud's phenomenon flares in her hands but they are tolerable with keeping them warm. [facility] Medical History Myositis on muscle biopsy Celiac disease Polyarthritis Raynaud disease Cryoglobulinemic vasculitis H/O Sjogren's disease Surgical History H/O unilateral oophorectomy H/O biopsy of kidney H/O eye surgery Family History Mother Cardiovascular disease Thyroid disorder Father Hypertension Diabetes Brother ADHD (attention deficit hyperactivity disorder) Social History Alcohol intake: never Patient Tobacco Use Status: Never used Tobacco Physical Exam Vital Signs: Last Vital Signs Pulse 69 07/13/25 14:39 BP 110/80 07/13/25 14:39 Pulse Ox 100 07/13/25 14:39 Oxygen Delivery Method Room Air 07/13/25 14:39 BMI result Body Mass Index 32.0 Const Other: General: Comfortable CVS: RRR Respiratory: clear to auscultation bilaterally. Good respiratory effort Skin: Hyperpigmented circular lesion right forearm. She has hyperpigmented tiny lesions on her legs representing healing vasculitic lesions. No palpable purpura. MSK: No tenderness of any joints. No synovitis. Normal range of motion of upper extremity and lower extremity. Assessment & Plan Assessment & Plan (1) Systemic lupus erythematosus: Comment: Presenting with relapsed disease off of prednisone manifesting with inflammatory arthritis, fatigue, hair loss, cutaneous disease with rash on her arms and vasculitis lesions on her legs secondary to cryoglobulinemic vasculitis, Raynaud's phenomenon, leukopenia, microcytic anemia, hypocomplementemia (C3, C4), persistent elevation in ESR responsive to prednisone. She has been on long-term prednisone for a few years with relapses as soon as prednisone has been tapered off. She has failed treatment with Myfortic. Azathioprine has provided benefit in reducing LCV severity. Most recent lab reveals slight elevation inALT with trace proteinuria. Benlysta is indicated. We discussed side effects, benefits and drug monitoring. After induction doses, if she feels well, we will start slow tapering of prednisone. In the past she has had side effect on long-term prednisone use with weight gain and steroid induced myopathy. Avoiding methotrexate due to leukopenia (1.7), microscopic anemia and transaminitis. MANUEL 1:1280, Negative Sm, DsDNA, WATER TREATMENT TECHNICIAN, with normal kidney function. History: MANUEL 1:1280,+SSA, +SSB, rheumatoid factor 27.9, low C4 and C3, leukopenia, microcytic anemia, elevated ESR. She has had multiple side effects to immunosuppressive agents in the past: Hydroxychloroquine cause low white cell count (evaluated by Hematology), rituximab caused infusion reaction with rash and body pain after 1st dose, sulfasalazine caused severe GI upset 12/20/2021, azathioprine 09/22/2022-to present. Responsive to prednisone. She has been diagnosed with cryoglobulinemic vasculitis (mixed type 3 cryoglobulinemia 2022). Negative hepatitis-B and C. Relapsed on azathioprine and low-dose prednisone. Dr Aguirre at [facility] in the past prescribed her mycophenolate mofetil, which was up titrated to 1250mg BID and after 5 weeks it was stopped because of pruritus in limbs and anxiety. 03/2025 skin biopsy right upper extremity reveals vacuolar interface dermatitis with increased dermal mucin. DIF negative. Failed Myfortic 08/2024-07/2025. She was previously treated for latent TB. 07/13/2024 negative QuantiFERON test. 11/17/2024 DXA normal. Code(s): M32.9 - Systemic lupus erythematosus, unspecified Category: Medical Plan: Continue azathioprine 200 mg daily Continue prednisone 10 mg daily. If she feels well after Benlysta induction, can consider reducing dose to 7.5 mg daily Benlysta infusion PA induction 10 milligram/kilogram every 2 weeks for 3 doses with pretreatment. Followed by maintenance 10 milligram/kilogram every 4 weeks. Plan will be to eventually switch to subcutaneous injection when her disease is better controlled Labs due 1 month after starting benlysta: CBC with differential, creatinine, AST, ALT, ESR, CRP, double-stranded DNA, C3, C4, UA microscopy with reflex culture, urine protein to creatinine ratio. Labs need to be done at [facility] per insurance requirement. She will need PCP ppx when she starts Benlysta with dapsone 100 mg daily. She will need G6PD checked prior to starting Benlysta She will start multivitamin (calcium and vitamin-D) Will find out if she had vitamin D level and Ca checked 2024 from [facility]. I could not find results scanned in our EMR. Return to clinic in 3 months (2) Cryoglobulinemic vasculitis: Comment: Disease is not controlled. 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 +SSA, SSB, MANUEL 1:1280, rheumatoid factor 27.9, low C4. She has had multiple side effects to immunosuppressive agents in the past: Hydroxychloroquine cause low white cell count (evaluated by Hematology), rituximab caused infusion reaction with rash and body pain after 1st dose, sulfasalazine caused severe GI upset 12/20/2021, azathioprine 09/22/2022-to present. She has longstanding Sjogren syndrome associated inflammatory arthritis responding to low-dose prednisone. 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 Dr Aguirre at [facility] in the past prescribed her mycophenolate mofetil, which was up titrated to 1250mg BID and after 5 weeks it was stopped because of itchiness in limbs and anxiety. Myfortic 08/2024-07/2025. Code(s): D89.1 - Cryoglobulinemia Category: Medical Plan: Discontinue Myfortic 180mg twice a day Continue prednisone 10 mg daily Continue azathioprine 200 mg daily weight based Labs for disease and drug monitoring up-to-date Return to clinic in 3 months (3) Sjogrens syndrome: Comment: Secondary. Dry eyes are controlled after laser treatment by tableau administrator Dr. Valle. Dry mouth is controlled. Code(s): M35.00 - Sjogren syndrome, unspecified Category: Medical Qualifiers: Sjogren organ or system involvement: keratoconjunctivitis Qualified Code(s): M35.01 - Sjogren syndrome with keratoconjunctivitis Plan: Continue to follow up with guard rail installer Dr. Valle and is planning to have laser treatment this Thursday Continue Biotene products for dry mouth management: Lozenges and tooth paste (4) Raynaud disease: Comment: Controlled with conservative management Code(s): I73.00 - Raynaud's syndrome without gangrene Category: Medical Qualifiers: Raynaud?s-associated gangrene presence: without gangrene Qualified Code(s): I73.00 - Raynaud's syndrome without gangrene Plan: Continue conservative management (5) Other custodial (current) drug therapy: Code(s): Z79.899 - Other custodial (current) drug therapy Category: Medical Plan: See above Orders: Orders Vitamin D 25-OH Total Today M32.9 - Systemic lupus erythematosus, unspecified, Z79.52 - cylinder press operator helper (current) use of systemic steroids, Z79.899 - Other custodial (current) drug therapy Cchanaz-2-Izgohykgo Dehydrogen Today M32.9 - Systemic lupus erythematosus, unspecified, Z79.52 - cylinder press operator helper (current) use of systemic steroids, Z79.899 - Other custodial (current) drug therapy Erythrocyte Sedimentation Rate 1 Month M32.9 - Systemic lupus erythematosus, unspecified Protein Creatinine Ratio, Ur 1 Month M32.9 - Systemic lupus erythematosus, unspecified Complement C3 1 Month M32.9 - Systemic lupus erythematosus, unspecified Aspartate Amino Transferase 1 Month M32.9 - Systemic lupus erythematosus, unspecified Complement C4 1 Month M32.9 - Systemic lupus erythematosus, unspecified Creatinine 1 Month M32.9 - Systemic lupus erythematosus, unspecified Anti DNA DS Antibody 1 Month M32.9 - Systemic lupus erythematosus, unspecified Complete Blood Count Auto Diff 1 Month M32.9 - Systemic lupus erythematosus, unspecified Alanine Aminotransferase 1 Month M32.9 - Systemic lupus erythematosus, unspecified UA ClnCatch+Micro w/rflx Cult 1 Month M32.9 - Systemic lupus erythematosus, unspecified C Reactive Protein 1 Month M32.9 - Systemic lupus erythematosus, unspecified Medications: Discontinued mycophenolate sodium (Myfortic) Discontinued Reason: Doctor's Order 360 mg (2 x 180 mg) PO BID 90 days 360 tabs 0RF Coding Level of Care Code Est Pt Level 4 (52385) Add On Problem Visit Only Diagnoses Systemic lupus erythematosus M32.9 Cryoglobulinemic vasculitis D89.1 Sjogren's syndrome with keratoconjunctivitis sicca M35.01 Sjogren organ or system involvement: keratoconjunctivitis Raynaud's disease without gangrene I73.00 Raynaud?s-associated gangrene presence: without gangrene Other custodial (current) drug therapy Z79.899
[2025-07-13 14:39] VITALS: BP 110/80; PULSE 69; O2SAT 100; BMI 32.0
--- OUTSIDE RECORDS SUMMARY | 2025-07-13 22:12 | XMS_ITS | Encounter Summary ---
Author Organization [facility] Address [address] [facility] [address] [place] [address] Phone Care Team Providers Care Audit Intern Name Role Phone Brenton Morales MD Unavailable [phone] Valeri Goodwin MD Unavailable [phone] Zan Brown TOOTH CUTTER CONTACT WHEEL Unavailable [phone] Sharona Velasco RESIDENT SERVICES DIRECTOR Unavailable [phone] Jd Murray MD Unavailable [phone] Bharath Lyon MD Unavailable Corine Neil MD Unavailable Valeri Goodwin MD Primary Care Provider [phone] Pcp, Unknown Primary Care Provider Unavailabl e Kerwin Marks DO Primary Care Provider Encounter Details Date Type Department Care Team (Late st Contact Info) Description 03/01/2019 Procedure Pass [facility] [address] [place] [address] Social History Tobacco Use Types Packs/Day Years [...] 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 Not on file Not on f ile documented as of this encounter Plan of Treatment Not on file documented as of this encounter Visit Diagnoses Not on filedocumented in this encounter Care Teams Audit Intern Relationship Specialty Start Date End Date Valeri Goodwin MD [address] [place] [address], [address] [place] [address] PCP - General 08/06/17 03/04/22 Pcp, Unknown PCP - General 03/05/22 03/05/22 Kerwin Marks DO [address] [address] PCP - General Family Medicine 09/13/24 Brenton Morales MD [address] [place] [address], [address] [place] [address] Historical LMR Provider 05/24/17 08/10/21 Valeri Goodwin MD [address] [place] [address], [address] [place] [address] Historical LMR Provider 05/24/17 2 Zan Brown CNP [address] [place] [address], [address] [place] [address] Historical LMR Provider 05/24/17 08/10/21 Sharona Velasco, RESIDENT SERVICES DIRECTOR [address] [place] [address] Historical LMR Provider 05/24/17 2 Jd Murray MD [address] [facility], [address] [place] [address] [email or web address] Historical LMR Provider 05/24/17 2 Bharath Lyon MD [address] [place] [phone] Historical LMR Provider 05/24/17 2 Corine Neil MD [address] [facility] [address] [place] [address] [email or web address] Historical LMR Provider 05/24/17 08/10/21 documented as of this encounter Additional Source Comments The information contained in this document represents components of the legal health record. It is not the complete legal health record.[facility]
--- OUTSIDE RECORDS SUMMARY | 2025-07-13 22:12 | XMS_ITS | Encounter Summary ---
Author Organization [facility] Address [address] [facility] [address] [place] [address] Phone Care Team Providers Care Affiliate Marketing Specialist Name Role Phone Brenton Morales MD Unavailable [phone] Valeri Goodwin MD Unavailable [phone] Zan Brown ROCKET TEST FIRE WORKER Unavailable [phone] Sharona Velasco COLOR DEPOSITING MACHINE TENDER Unavailable [phone] Jd Murray MD Unavailable [phone] Bharath Lyon MD Unavailable Corine Neil MD Unavailable Valeri Goodwin MD Primary Care Provider [phone]- [phone] Pcp, Unknown Primary Care Provider Unavailabl e Kerwin Marks DO Primary Care Provider Encounter Details Date Type Department Care Team (Late st Contact Info) Description 03/01/2019 Procedure Pass [facility] [address] [place] [address] Social History Tobacco Use Types Packs/Day Years [...] 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 Not on file Not on f ile documented as of this encounter Plan of Treatment Not on file documented as of this encounter Visit Diagnoses Not on filedocumented in this encounter Care Teams Affiliate Marketing Specialist Relationship Specialty Start Date End Date Valeri Goodwin MD [address] [place] [address], [address] [place] [address] PCP - General 08/06/17 03/04/22 Pcp, Unknown PCP - General 03/05/22 03/05/22 Kerwin Marks DO [address] [address] PCP - General Family Medicine 09/13/24 Brenton Morales MD [address] [place] [address], [address] [place] [address] Historical LMR Provider 05/24/17 08/10/21 Valeri Goodwin MD [address] [place] [address], [address] [place] [address] Historical LMR Provider 05/24/17 2 Zan Brown CNP [address] [place] [address], [address] [place] [address] Historical LMR Provider 05/24/17 08/10/21 Sharona Velasco, COLOR DEPOSITING MACHINE TENDER [address] [place] [address] Historical LMR Provider 05/24/17 2 Jd Murray MD [address] [facility], [address] [place] [address] [email or web address] Historical LMR Provider 05/24/17 2 Bharath Lyon MD [address] [place] [phone] Historical LMR Provider 05/24/17 2 Corine Neil MD [address] [facility] [address] [place] [address] [email or web address] Historical LMR Provider 05/24/17 08/10/21 documented as of this encounter Additional Source Comments The information contained in this document represents components of the legal health record. It is not the complete legal health record.[facility]
--- OUTSIDE RECORDS SUMMARY | 2025-07-13 22:12 | XMS_ITS | Encounter Summary ---
Author Organization [facility] Address [address] [place] [address] [place] [address] Phone Care Team Providers Care Oracle Database Consultant Name Role Phone Brenton Morales MD Unavailable [phone] Valeri Goodwin MD Unavailable [phone] Zan Brown ASSISTANT PROFESSOR SURGICAL TECHNOLOGY Unavailable [phone] Sharona Velasco INSPECTOR AND MENDER Unavailable [phone] Jd Murray MD Unavailable [phone] Bharath Lyon MD Unavailable Corine Neil MD Unavailable [phone] Valeri Goodwin MD Primary Care Provider [phone] Pcp, Unknown Primary Care Provider Unavailhailee e Kerwin Marks DO Primary Care Provider [phone] Reason for Referral * MRI/CAT Scan - Closed Specialty Diagnoses / Procedures Referred By Contac t Referred To Contact Procedures MRI Neck Outside (No Interpretation) System, Provider Not In, PhD [address] [address] Referral ID Status Reason Start Date Expiration Date Visits Re quested Visits Authorized [id number] Closed 02/08/2018 02/08/2019 1 1 * MRI/CAT Scan - Closed Specialty Diagnoses / Procedures Referred By Contac t Referred To Contact Procedures MRI Brain Outside (No Interpretation) System, Provider Not In, PhD [facility] [address] [address] Referral ID Status Reason Start Date Expiration Date Visits Re quested Visits Authorized [id number] Closed 02/08/2018 02/08/2019 1 1 Encounter Details Date Type Department Care Team (Late st Contact Info) Description 02/08/2018 Ancillary Orders [facility] [address] [place] [address] System, Provider Not In, PhD Mau bridger [address] [place] [address] Social History Tobacco Use Types Packs/Day Years [...] 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 Not on file [...] on filedocumented in this encounter Care Teams Oracle Database Consultant Relationship Specialty Start Date End Date Valeri Goodwin MD [address] [place] [address], [address] [place] [address] PCP - General 08/06/17 03/04/22 Pcp, Unknown PCP - General 03/05/22 03/05/22 Kerwin Marks DO [address] [facility] [address] [place] [address] PCP - General Family Medicine 09/13/24 Brenton Morales MD [address] [place] [address], [address] [place] [address] Historical LMR Provider 05/24/17 08/10/21 Valeri Goodwin MD [address] [place] [address], [address] [place] [address] Historical LMR Provider 05/24/17 2 Zan Brown, ASSISTANT PROFESSOR SURGICAL TECHNOLOGY [address] [place] [address], [address] [place] [address] Historical LMR Provider 05/24/17 08/10/21 Sharona Velasco, INSPECTOR AND MENDER [address] [place] [address] Historical LMR Provider 05/24/17 2 Jd Murray MD [address] [place] [address], [address] [place] [address] Historical LMR Provider 05/24/17 2 Bharath Lyon MD [address] [place] [address] Historical LMR Provider 05/24/17 2 Corine Neil MD [address] [place] [address] [email or web address] Historical LMR Provider 05/24/17 08/10/21 documented as of this encounter Additional Source Comments The information contained in this document represents components of the legal health record. It is not the complete legal health record.[facility]
--- OUTSIDE RECORDS SUMMARY | 2025-07-13 22:12 | XMS_ITS | Encounter Summary ---
Author Organization [facility] Address [address] [facility] [address] [place] [address] Phone Care Team Providers Care Cargo Supervisor Name Role Phone Brenton Morales MD Unavailable [phone] Valeri Goodwin MD Unavailable [phone] Zan Brown EGG GATHERER Unavailable [phone] Sharona Velasco ADMINISTRATIVE JOB TITLES Unavailable [phone] Jd Murray MD Unavailable [phone] Bharath Lyon MD Unavailable [phone] Corine Neil MD Unavailable Valeri Goodwin MD Primary Care Provider [phone] Pcp, Unknown Primary Care Provider Unavailabl e Kerwin Marks DO Primary Care Provider Encounter Details Date Type Department Care Team (Late st Contact Info) Description 03/01/2019 Procedure Pass [facility] Imaging [address] [place] [address] Social History Tobacco Use Types Packs/Day Years [...] 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 Not on file Not on f ile documented as of this encounter Plan of Treatment Not on file documented as of this encounter Visit Diagnoses Not on filedocumented in this encounter Care Teams Cargo Supervisor Relationship Specialty Start Date End Date Valeri Goodwin MD [address] [place] [address], [address] [place] [address] PCP - General 08/06/17 03/04/22 Pcp, Unknown PCP - General 03/05/22 03/05/22 Kerwin Marks DO [address] [address] PCP - General Family Medicine 09/13/24 Brenton Morales MD [address] [place] [address], [address] [place] [address] Historical LMR Provider 05/24/17 08/10/21 Valeri Goodwin MD [address] [place] [address], [address] [place] [address] Historical LMR Provider 05/24/17 2 Zan Brown CNP [address] [place] [address], [address] [place] [address] Historical LMR Provider 05/24/17 08/10/21 Sharona Velasco, ADMINISTRATIVE JOB TITLES [address] [place] [address] Historical LMR Provider 05/24/17 2 Jd Murray MD [address] [facility], [address] [place] [address] [email or web address] Historical LMR Provider 05/24/17 2 Bharath Lyon MD [address] [place] [phone] Historical LMR Provider 05/24/17 2 Corine Neil MD [address] [facility] [address] [place] [address] [email or web address] Historical LMR Provider 05/24/17 08/10/21 documented as of this encounter Additional Source Comments The information contained in this document represents components of the legal health record. It is not the complete legal health record.[facility]
--- OUTSIDE RECORDS SUMMARY | 2025-07-13 22:12 | XMS_ITS | Encounter Summary ---
Author Organization [facility] Address [email or web address] [place] [address] Phone Care Team Providers Care Soldering Technician Name Role Phone Kerwin Marks DO Primary Care Provider Encounter Details Date Type Department Care Team (Late st Contact Info) Description 11/24/2024 Transcribe Orders [facility] [address] [place] [address] Vilma Richardson MD [address] [address] 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 It is not the complete legal health record.[facility]
--- OUTSIDE RECORDS SUMMARY | 2025-07-13 22:12 | XMS_ITS | Encounter Summary ---
Author Organization [facility] Address [address] [facility] [address] [place] [address] Phone Care Team Providers Care Director Digital Strategy Name Role Phone Brenton Morales MD Unavailable +-[phone] Valeri Goodwin MD Unavailable +-[phone] Zan Brown SANITARY PLUMBER Unavailable [phone] Sharona Velasco ELECTRICAL AND INSTRUMENT MECHANIC Unavailable [phone] Jd Murray MD Unavailable [phone] Bharath Lyon MD Unavailable Corine Neil MD Unavailable Valeri Goodwin MD Primary Care Provider +- [phone] Pcp, Unknown Primary Care Provider Unavailabl e Kerwin Marks DO Primary Care Provider Encounter Details Date Type Department Care Team (Late st Contact Info) Description 03/01/2019 Procedure Pass [facility] [address] [place] [address] Social History Tobacco Use Types Packs/Day Years [...] 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 Not on file Not on f ile documented as of this encounter Plan of Treatment Not on file documented as of this encounter Visit Diagnoses Not on filedocumented in this encounter Care Teams Director Digital Strategy Relationship Specialty Start Date End Date Valeri Goodwin MD [address] [place] [address], [address] [place] [address] PCP - General 08/06/17 03/04/22 Pcp, Unknown PCP - General 03/05/22 03/05/22 Kerwin Marks DO [address] [address] PCP - General Family Medicine 09/13/24 Brenton Morales MD [address] [place] [address], [address] [place] [address] Historical LMR Provider 05/24/17 08/10/21 Valeri Goodwin MD [address] [place] [address], [address] [place] [address] Historical LMR Provider 05/24/17 2 Zan Brown CNP [address] [place] [address], [address] [place] [address] Historical LMR Provider 05/24/17 08/10/21 Sharona Velasco, ELECTRICAL AND INSTRUMENT MECHANIC [address] [place] [address] Historical LMR Provider 05/24/17 2 Jd Murray MD 22 [facility], [address] [place] [address] [email or web address] Historical LMR Provider 05/24/17 2 Bharath Lyon MD [address] [place] [phone] Historical LMR Provider 05/24/17 2 Corine Neil MD 46 [facility] [address] [place] [address] [email or web address] Historical LMR Provider 05/24/17 08/10/21 documented as of this encounter Additional Source Comments The information contained in this document represents components of the legal health record. It is not the complete legal health record.[facility]
--- OUTSIDE RECORDS SUMMARY | 2025-07-13 22:12 | XMS_ITS | Encounter Summary ---
Author Organization [facility] Address [address] [facility] [address] [place] [address] Phone Care Team Providers Care Doctor Of Audiology Name Role Phone Brenton Morales MD Unavailable +[phone] Valeri Goodwin MD Unavailable +-[phone] Zan Brown ROLLER PRINT TENDER Unavailable [phone] Sharona Velasco HUMAN RESOURCES BENEFITS SPECIALIST Unavailable [phone] Jd Murray MD Unavailable [phone] Bharath Lyon MD Unavailable Corine Neil MD Unavailable Valeri Goodwin MD Primary Care Provider +- [phone] Pcp, Unknown Primary Care Provider Unavailabl e Kerwin Marks DO Primary Care Provider Encounter Details Date Type Department Care Team (Late st Contact Info) Description 03/01/2019 Procedure Pass [facility] [address] [place] [address] Social History Tobacco Use Types Packs/Day Years [...] 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 on file Not on f ile documented as of this encounter Plan of Treatment Not on file documented as of this encounter Visit Diagnoses Not on filedocumented in this encounter Care Teams Doctor Of Audiology Relationship Specialty Start Date End Date Valeri Goodwin MD [address] [place] [address], [address] [place] [address] PCP - General 08/06/17 03/04/22 Pcp, Unknown PCP - General 03/05/22 03/05/22 Kerwin Marks DO [address] [address] PCP - General Family Medicine 09/13/24 Brenton Morales MD [address] [place] [address], [address] [place] [address] Historical LMR Provider 05/24/17 08/10/21 Valeri Goodwin MD [address] [place] [address], [address] [place] [address] Historical LMR Provider 05/24/17 2 Zan Brown CNP [address] [place] [address], [address] [place] [address] Historical LMR Provider 05/24/17 08/10/21 Sharona Velasco, HUMAN RESOURCES BENEFITS SPECIALIST [address] [place] [address] Historical LMR Provider 05/24/17 2 Jd Murray MD 22 [facility], [address] [place] [address] [email or web address] Historical LMR Provider 05/24/17 2 Bharath Lyon MD [address] [place] [phone] Historical LMR Provider 05/24/17 2 Corine Neil MD 46 [facility] [address] [place] [address] [email or web address] Historical LMR Provider 05/24/17 08/10/21 documented as of this encounter Additional Source Comments The information contained in this document represents components of the legal health record. It is not the complete legal health record.[facility]
--- OUTSIDE RECORDS SUMMARY | 2025-07-13 22:12 | XMS_ITS | Encounter Summary ---
Author Organization [facility] Address [address] [facility] [address] [place] [address] Phone Care Team Providers Care Tank Builder Name Role Phone Brenton Morales MD Unavailable +[phone] Valeri Goodwin MD Unavailable +-[phone] Zan Brown ACTING TEACHER Unavailable [phone] Sharona Velasco TECHNICAL INSTRUCTOR COURSE DEVELOPER Unavailable [phone] Jd Murray MD Unavailable [phone] Bharath Lyon MD Unavailable Corine Neil MD Unavailable Valeri Goodwin MD Primary Care Provider +- [phone] Pcp, Unknown Primary Care Provider Unavailabl e Kerwin Marks DO Primary Care Provider [phone] Encounter Details Date Type Department Care Team (Late st Contact Info) Description 03/01/[address] 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 Not on file Not on f ile documented as of this encounter Plan of Treatment Not on file documented as of this encounter Visit Diagnoses Not on filedocumented in this encounter Care Teams Tank Builder Relationship Specialty Start Date End Date Valeri Goodwin MD [address] [place] [address], [address] [place] [address] PCP - General 08/06/17 03/04/22 Pcp, Unknown PCP - General 03/05/22 03/05/22 Kerwin Marks DO [address] [address] PCP - General Family Medicine 09/13/24 Brenton Morales MD [address] [place] [address], [address] [place] [address] Historical LMR Provider 05/24/17 08/10/21 Valeri Goodwin MD [address] [place] [address], [address] [place] [address] Historical LMR Provider 05/24/17 2 Zan Brown CNP [address] [place] [address], [address] [place] [address] Historical LMR Provider 05/24/17 08/10/21 Sharona Velasco, TECHNICAL INSTRUCTOR COURSE DEVELOPER [address] [place] [address] Historical LMR Provider 05/24/17 2 Jd Murray MD 22 [facility], [address] [place] [address] [email or web address] Historical LMR Provider 05/24/17 2 Bharath Lyon MD [address] [place] [phone] Historical LMR Provider 05/24/17 2 Corine Neil MD 46 [facility] [address] [place] [address] [email or web address] Historical LMR Provider 05/24/17 08/10/21 documented as of this encounter Additional Source Comments The information contained in this document represents components of the legal health record. It is not the complete legal health record.[facility]
--- OUTSIDE RECORDS SUMMARY | 2025-07-13 22:12 | XMS_ITS | Encounter Summary ---
Author Organization [facility] Address [address] [facility] [address] [place] [address] Phone Care Team Providers Care Wind Turbine Blade Repair Technician Name Role Phone Brenton Morales MD Unavailable [phone] Valeri Goodwin MD Unavailable +[phone] Zan Brown CLINICAL RESEARCH MANAGEMENT ASSOCIATE Unavailable [phone] Sharona Velasco PHOTOENGRAVING PRINTER Unavailable [phone] Jd Murray MD Unavailable [phone] Bharath Lyon MD Unavailable Corine Neil MD Unavailable Pcp, Unknown Primary Care Provider UnavailValeri Jenkins MD Primary Care Provider +- [phone] Pcp, Unknown Primary Care Provider UnavailKerwin Stanley DO Primary Care Provider Encounter Details Date Type Department Care Team (Late st Contact Info) Description 07/21/2017 Transcribe Orders [facility] Specimen Processing [address] [place] [address] Luna López MD [address] [place], [place] [id number] Cutaneous abscess of face (Primary Dx) Social [...] Specimen Source/ Description SKIN SUBMENTAL CHIN SKIN [facility] Special Requests None [facility] GRAM STAIN NO ORGANISMS SEEN , Few WBC'S [facility] Culture/Test NO GROWTH 48HRS [facility] Report Status 07/23/2017 FINAL [facility] Other (Skin) 07/21/2017 1:31 PM EST 07/21/2017 4:19 PM EST us Luna López MD LAB MICROBIOLOGY CULTURE OR DERABLES Final Result Performing Organization Address City/State/[place] de Phone Number [facility] [address] [place] [address] documented in this encounter Visit Diagnoses Diagnosis Cutaneous abscess of face- Primary documented in this encounter Care Teams Wind Turbine Blade Repair Technician Relationship Specialty Start Date End Date Pcp, Unknown PCP - General 07/21/17 08/05/17 Valeri Goodwin MD [address] [place] [address], [address] [place] [address] PCP - General 08/06/17 03/04/22 Pcp, Unknown PCP - General 03/05/22 03/05/22 Kerwin Marks DO [address] [address] PCP - General Family Medicine 09/13/24 Brenton Morales MD [address] [place] [address], [address] [place] [address] Historical LMR Provider 05/24/17 08/10/21 Valeri Goodwin MD [address] [place] [address], [address] [place] [address] Historical LMR Provider 05/24/17 2 Zan Brown, CLINICAL RESEARCH MANAGEMENT ASSOCIATE [address] [place] [address], [address] [place] [address] Historical LMR Provider 05/24/17 08/10/21 Sharona Velasco PHOTOENGRAVING PRINTER [address] [place] [address] Historical LMR Provider 05/24/17 2 Jd Murray MD [address] [place] [address], [address] [place] [address] [email or web address] Historical LMR Provider 05/24/17 2 Bharath Lyon MD [address] [place] [phone] Historical LMR Provider 05/24/17 2 Corine Neil MD [address] [place] [address] [email or web address] Historical LMR Provider 05/24/17 08/10/21 documented as of this encounter Additional Source Comments The information contained in this document represents components of the legal health record. It is not the complete legal health record.[facility]
--- OUTSIDE RECORDS SUMMARY | 2025-07-13 22:12 | XMS_ITS | Encounter Summary ---
Author Organization [facility] Address [address] [facility] [address] [place] [address] Phone Care Team Providers Care Sports Leadership Instructor Name Role Phone Brenton Morales MD Unavailable [phone] Valeri Goodwin MD Unavailable +[phone] Zan Brown BIOINFORMATICS RESEARCH TECHNICIAN Unavailable [phone] Sharona Velasco SITE CONTROLLER Unavailable [phone] Jd Murray MD Unavailable [phone] Bharath Lyon MD Unavailable [phone] Corine Neil MD Unavailable Valeri Goodwin MD Primary Care Provider [phone]- [phone] Pcp, Unknown Primary Care Provider Unavailabl e Kerwin Marks DO Primary Care Provider Encounter Details Date Type Department Care Team (Late st Contact Info) Description 03/01/2019 Procedure Pass [facility] [address] [place] [address] Social History Tobacco Use Types Packs/Day Years [...] 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 file Not on f ile documented as of this encounter Plan of Treatment Not on file documented as of this encounter Visit Diagnoses Not on filedocumented in this encounter Care Teams Sports Leadership Instructor Relationship Specialty Start Date End Date Valeri Goodwin MD [address] [place] [address], [address] [place] [address] PCP - General 08/06/17 03/04/22 Pcp, Unknown PCP - General 03/05/22 03/05/22 Kerwin Marks DO [address] [address] PCP - General Family Medicine 09/13/24 Brenton Morales MD [address] [place] [address], [address] [place] [address] Historical LMR Provider 05/24/17 08/10/21 Valeri Goodwin MD [address] [place] [address], [address] [place] [address] Historical LMR Provider 05/24/17 2 Zan Brown CNP [address] [place] [address], [address] [place] [address] Historical LMR Provider 05/24/17 08/10/21 Sharona Velasco, SITE CONTROLLER [address] [place] [address] Historical LMR Provider 05/24/17 2 Jd Murray MD 22 [facility], [address] [place] [address] [email or web address] Historical LMR Provider 05/24/17 2 Bharath Lyon MD [address] [place] [phone] Historical LMR Provider 05/24/17 2 Corine Neil MD 46 [facility] [address] [place] [address] [email or web address] Historical LMR Provider 05/24/17 08/10/21 documented as of this encounter Additional Source Comments The information contained in this document represents components of the legal health record. It is not the complete legal health record.[facility]
--- OUTSIDE RECORDS SUMMARY | 2025-07-13 22:12 | XMS_ITS | Encounter Summary ---
Author Organization [facility] Address [address] [facility] [address] [place] [address] Phone Care Team Providers Care Clinical Practice Consultant Name Role Phone Brenton Morales MD Unavailable +[phone] Valeri Goodwin MD Unavailable +[phone] Zan Brown CONSULTING SENIOR PRACTICE DIRECTOR Unavailable [phone] Sharona Velasco INFORMATION TECHNOLOGY SPECIALIST Unavailable [phone] Jd Murray MD Unavailable [phone] Bharath Lyon MD Unavailable Corine Niel MD Unavailable [phone] Valeri Goodwin MD Primary Care Provider [phone] Pcp, Unknown Primary Care Provider Unavailabl e Kerwin Marks DO Primary Care Provider Encounter Details Date Type Department Care Team (Late st Contact Info) Description 02/08/2018 Procedure Pass [facility],Outside Imaging [address] [place], [place] [id number] Social History Tobacco Use Types Packs/Day Years [...] 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 Not on f ile documented as of this encounter Plan of Treatment Not on file documented as of this encounter Visit Diagnoses Not on filedocumented in this encounter Care Teams Clinical Practice Consultant Relationship Specialty Start Date End Date Valeri Goodwin MD [address] [place] [address], [address] [place] [address] PCP - General 08/06/17 03/04/22 Pcp, Unknown PCP - General 03/05/22 03/05/22 Kerwin Marks DO [address] [facility] [address] [place] [address] PCP - General Family Medicine 09/13/24 Brenton Morales MD [address] [place] [address], [address] [place] [address] Historical LMR Provider 05/24/17 08/10/21 Valeri Goodwin MD [address] [place] [address], [address] [place] [address] Historical LMR Provider 05/24/17 2 Zan Brown, JAMILAH [address] [place] [address], [address] [place] [address] Historical LMR Provider 05/24/17 08/10/21 Sharona Velasco, INFORMATION TECHNOLOGY SPECIALIST [address] [place] [address] Historical LMR Provider 05/24/17 2 Jd Murray MD 22 [facility], [address] [place] [address] Historical LMR Provider 05/24/17 2 Bharath Lyon MD [address] [place] [phone] Historical LMR Provider 05/24/17 2 Corine Neil MD 46 [facility] [address] [place] [address] [email or web address] Historical LMR Provider 05/24/17 08/10/21 documented as of this encounter Additional Source Comments The information contained in this document represents components of the legal health record. It is not the complete legal health record.[facility]
--- OUTSIDE RECORDS SUMMARY | 2025-07-13 22:12 | XMS_ITS | Encounter Summary ---
Author Organization [facility] Address [address] [facility] [address] [place] [address] Phone Care Team Providers Care Staff Development Educator Name Role Phone Brenton Morales MD Unavailable +[phone] Valeri Goodwin MD Unavailable +-[phone] Zan Brown ASSOCIATE SALES Unavailable [phone] Sharona Velasco LICENSED PSYCHOLOGIST Unavailable [phone] Jd Murray MD Unavailable [phone] Bharath Lyon MD Unavailable Corine Neil MD Unavailable Valeri Goodwin MD Primary Care Provider +- [phone] Pcp, Unknown Primary Care Provider Unavailabl e Kerwin Marks DO Primary Care Provider Encounter Details Date Type Department Care Team (Late st Contact Info) Description 03/01/2019 Procedure Pass [facility] [address] [place] [address] Social History Tobacco Use Types Packs/Day Years [...] 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 on file Not on f ile documented as of this encounter Plan of Treatment Not on file documented as of this encounter Visit Diagnoses Not on filedocumented in this encounter Care Teams Staff Development Educator Relationship Specialty Start Date End Date Valeri Goodwin MD [address] [place] [address], [address] [place] [address] PCP - General 08/06/17 03/04/22 Pcp, Unknown PCP - General 03/05/22 03/05/22 Kerwin Marks DO [address] [address] PCP - General Family Medicine 09/13/24 Brenton Morales MD [address] [place] [address], [address] [place] [address] Historical LMR Provider 05/24/17 08/10/21 Valeri Goodwin MD [address] [place] [address], [address] [place] [address] Historical LMR Provider 05/24/17 2 Zan Brown CNP [address] [place] [address], [address] [place] [address] Historical LMR Provider 05/24/17 08/10/21 Sharona Velasco, LICENSED PSYCHOLOGIST [address] [place] [address] Historical LMR Provider 05/24/17 2 Jd Murray MD 22 [facility], [address] [place] [address] [email or web address] Historical LMR Provider 05/24/17 2 Bharath Lyon MD [address] [place] [phone] Historical LMR Provider 05/24/17 2 Corine Neil MD 46 [facility] [address] [place] [address] [email or web address] Historical LMR Provider 05/24/17 08/10/21 documented as of this encounter Additional Source Comments The information contained in this document represents components of the legal health record. It is not the complete legal health record.[facility]
--- OUTSIDE RECORDS SUMMARY | 2025-07-13 22:12 | XMS_ITS | Encounter Summary ---
Author Organization [facility] Address [address] [facility] [address] [place] [address] Phone Care Team Providers Care Cake Decorator Name Role Phone Brenton Morales MD Unavailable +[phone] Valeri Goodwin MD Unavailable +[phone] Zan Brown CUSTOMER ASSISTANCE REPRESENTATIVE Unavailable [phone] Sharona Velasco CAR SHUNTER Unavailable [phone] Jd Murray MD Unavailable [phone] Bharath Lyon MD Unavailable Corine Neil MD Unavailable [phone] Valeri Goodwin MD Primary Care Provider [phone] Pcp, Unknown Primary Care Provider Unavailabl e Kerwin Marks DO Primary Care Provider Encounter Details Date Type Department Care Team (Late st Contact Info) Description 02/08/2018 Procedure Pass [facility],Outside Imaging [address] [place], [place] [id number] Social History Tobacco Use Types Packs/Day Years [...] 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 file Not on f ile documented as of this encounter Plan of Treatment Not on file documented as of this encounter Visit Diagnoses Not on filedocumented in this encounter Care Teams Cake Decorator Relationship Specialty Start Date End Date Valeri Goodwin MD [address] [place] [address], [address] [place] [address] PCP - General 08/06/17 03/04/22 Pcp, Unknown PCP - General 03/05/22 03/05/22 Kerwin Marks DO [address] [facility] [address] [place] [address] PCP - General Family Medicine 09/13/24 Brenton Morales MD [address] [place] [address], [address] [place] [address] Historical LMR Provider 05/24/17 08/10/21 Valeri Goodwin MD [address] [place] [address], [address] [place] [address] Historical LMR Provider 05/24/17 2 Zan Brown, JAMILAH [address] [place] [address], [address] [place] [address] Historical LMR Provider 05/24/17 08/10/21 Sharona Velasco, CAR SHUNTER [address] [place] [address] Historical LMR Provider 05/24/17 2 Jd Murray MD 22 [facility], [address] [place] [address] Historical LMR Provider 05/24/17 2 Bharath Lyon MD [address] [place] [phone] Historical LMR Provider 05/24/17 2 Corine Neil MD 46 [facility] [address] [place] [address] [email or web address] Historical LMR Provider 05/24/17 08/10/21 documented as of this encounter Additional Source Comments The information contained in this document represents components of the legal health record. It is not the complete legal health record.[facility]
--- OUTSIDE RECORDS SUMMARY | 2025-07-13 22:12 | XMS_ITS | Clinical Summary ---
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 Not on file [...] Date/Time Associated Diagnosis Comments BASIC METABOLIC PANEL (BMP) Routine 08/09/2020 HM PAP SMEAR FOR RESULT ENTRY ONLY Routine 01/31/2019 OUTSIDE HIV Routine 08/03/2018 HEPATITIS C ANTIBODY, QUALITATIVE Routine 05/04/2018 9:52 AM EDT Paresthesias from Last 3 Months or Most Recently Relevant to Health Maintenance Results * Basic metabolic panel (08/09/2020) us Valeri Goodwin MD LAB BLOOD BKR ORDERABLES E dited Result - Final * [facility] PAP SMEAR FOR RESULT ENTRY ONLY (01/31/2019) Pap smear neg/hpv neg Historical Provider HEALTH MAINTENANCE Final Result * OUTSIDE HIV TEST (08/03/2018) HIV - External Neg (patient reported) Historical Provider LAB BLOOD ORDERABLES Meliza l Result * Hepatitis C antibody, qualitative (05/04/2018 9:52 AM EDT) Blood us Valeri Goodwin MD LAB BLOOD BKR ORDERABLES F inal Result [facility] [address] [place] [address] from Last 3 Months or Most Recently Relevant to Health Maintenance Insurance [address] [place], [place] [id number] PHCS S S S S Care Teams Shell Trim Operator Relationship Specialty Start Date End Date Kerwin Marks DO [address] [address] PCP - General Family Medicine 09/13/24 Additional Source Comments The information contained in this document represents components of the legal health record. It is not the complete legal health record.[facility]
--- OUTSIDE RECORDS SUMMARY | 2025-07-13 22:12 | XMS_ITS | Encounter Summary ---
Author Organization [facility] Address [address] [facility] [address] [place] [address] Phone Care Team Providers Care Wood Boatbuilder Apprentice Name Role Phone Brenton Morales MD Unavailable [phone] Valeri Goodwin MD Unavailable [phone] Zan Brown GRAB DRIVER Unavailable [phone] Sharona Velasco EMERGENCY ROOM TECH Unavailable [phone] Jd Murray MD Unavailable [phone] Bharath Lyon MD Unavailable [phone] Corine Neil MD Unavailable [phone] Valeri Goodwin MD Primary Care Provider [phone] Pcp, Unknown Primary Care Provider Unavailhailee e Kerwin Marks DO Primary Care Provider Encounter Details Date Type Department Care Team (Late st Contact Info) Description 02/10/2018 Ancillary Orders [facility],Outside Imaging [address] [place], [place] [id number] System, Provider Not In, [facility] [address] [address] Social History Tobacco Use Types Packs/Day Years [...] 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 Not on file Not [...] on filedocumented in this encounter Care Teams Wood Boatbuilder Apprentice Relationship Specialty Start Date End Date Valeri Goodwin MD [address] [place] [address], [address] [place] [address] PCP - General 08/06/17 03/04/22 Pcp, Unknown PCP - General 03/05/22 03/05/22 Kerwin Marks DO [address] [facility] [address] [place] [address] PCP - General Family Medicine 09/13/24 Brenton Morales MD [address] [place] [address], [address] [place] [address] Historical LMR Provider 05/24/17 08/10/21 Valeri Goodwin MD [address] [place] [address], [address] [place] [address] Historical LMR Provider 05/24/17 2 Zan Brown CNP [address] [facility], [address] [place] [address] [email or web address] Historical LMR Provider 05/24/17 08/10/21 Sharona Velasco EMERGENCY ROOM TECH [address] [place] [address] Historical LMR Provider 05/24/17 2 Jd Murray MD [address] [facility], [address] [place] [address] [email or web address] Historical LMR Provider 05/24/17 2 Bharath Lyon MD [address] [place] [phone] Historical LMR Provider 05/24/17 2 Corine Neil MD [address] [place] [address] [email or web address] Historical LMR Provider 05/24/17 08/10/21 documented as of this encounter Additional Source Comments The information contained in this document represents components of the legal health record. It is not the complete legal health record.[facility]
--- OUTSIDE RECORDS SUMMARY | 2025-07-13 22:13 | XMS_ITS | Encounter Summary ---
Author Organization [facility] Address [address] [place] [address] [place] [address] Phone Care Team Providers Care Bunker Worker Name Role Phone Brenton Morales MD Unavailable [phone] Valeri Goodwin MD Unavailable [phone] Zan Brown PROFESSIONAL NURSING TUTOR Unavailable [phone] Sharona Velasco BOTTOM FINISHER Unavailable [phone] Jd Murray MD Unavailable [phone] Bharath Lyon MD Unavailable Corine Neil MD Unavailable Valeri Goodwin MD Primary Care Provider [phone] Pcp, Unknown Primary Care Provider UnavailKerwin Stanley DO Primary Care Provider [phone] Reason for Referral * Consultation (Elective) - Closed Specialty Diagnoses / Procedures Referred By Contac t Referred To Contact Neurology Diagnoses Encounter for consultation Norma Finnegan MD Phone: tel: fax: [address] [phone] Phone: tel: Referral ID Status Reason Start Date Expiration Date Visits Re quested Visits Authorized [id number] Closed 02/14/2019 02/15/2020 1 1 Encounter Details Date Type Department Care Team (Latest Contact Info) Description 02/14/2019 Transcribe Orders [facility] Department of [place]rology [address] [place] [address], [address] Floor, [address] [place] [address] Norma Finnegan MD [address] [place] [phone] Encounter for consultation (Primary Dx) Social History [...] 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 Not on file Not on f ile documented as of this encounter Plan of Treatment Scheduled Referrals Name Type Priority Associated Diagnoses Orde r Schedule Ambulatory referral [place] [facility] [place] Outpatient Referral Routine Encounter for consultation Ordered: 02/14/2019 documented as of this encounter Visit Diagnoses Diagnosis Encounter for consultation- Primary documented in this encounter Care Teams Bunker Worker Relationship Specialty Start Date End Date Valeri Goodwin MD [address] [place] [address], [address] [place] [address] [email or web address] PCP - General 08/06/17 03/04/22 Pcp, Unknown PCP - General 03/05/22 03/05/22 Kerwin Marks DO [address] [facility] [address] [place] [address] PCP - General Family Medicine 09/13/24 Brenton Morales MD [address] [place] [address], [address] [place] [address] Historical LMR Provider 05/24/17 08/10/21 Valeri Goodwin MD [address] [place] [address], [address] [place] [address] Historical LMR Provider 05/24/17 2 Zan Brown, PROFESSIONAL NURSING TUTOR [address] [place] [address], [address] [place] [address] Historical LMR Provider 05/24/17 08/10/21 Sharona Velasco, BOTTOM FINISHER [address] [place] [address] Historical LMR Provider 05/24/17 2 Jd Murray MD [address] [place] [address], [address] [place] [address] [email or web address] Historical LMR Provider 05/24/17 2 Bharath Lyon MD [address] [place] [phone] Historical LMR Provider 05/24/17 2 Corine Neil MD [address] [place] [address] [email or web address] Historical LMR Provider 05/24/17 08/10/21 documented as of this encounter Additional Source Comments The information contained in this document represents components of the legal health record. It is not the complete legal health record.[facility]
== END 2025-07-13 15:19 | disposition home or self-care (01) ==
LOC: HO.RHES 14:36
PROVIDERS: PCP Family Medicine; Visit Provider Internal Medicine Rheumatology
DX: M32.9 Systemic lupus erythematosus, unspecified (principal); D89.1 Cryoglobulinemia; M35.01 Sjogren syndrome with keratoconjunctivitis; I73.00 Raynaud's syndrome without gangrene; Z79.899 Other long term (current) drug therapy
CPT/HCPCS: 99214; G2211